=== PATIENT | female | born 1935 | race Caucasian/White ===

== ENCOUNTER 2018-07-25 19:53 | Inpatient (IN) | payer OTHER ==
[2018-07-25 20:35] LABS: PLATELET COUNT 277 10^3/uL (150-400)
--- NOTE | 2018-07-25 20:59 | EDPHY ---
HPI/HX/ROS/PE/MDM Narrative: CHIEF COMPLAINT: Left-sided weakness, unsteady HISTORY OF PRESENT ILLNESS: The patient is an 83 y/o female arriving with her family member for evaluation of left-sided weakness, unsteadiness, and difficulty walking since 03:00 this morning, about 17 hours ago. She felt normal when she went to sleep about 3 hours prior around midnight. She woke up to use the bathroom and "ended up having to crawl and couldn't make it in time. " She was unable to walk because her left hand and left leg "felt unsteady." Throughout the day she continued to have difficulty walking and describes numbness and tingling in her left hand. She slept most of the day and when it didn't improve she called her daughter who picked her up and brought her to the ED for evaluation. Her daughter denies any apparent speech difficulty over the phone or in person. No history of hypertension, cardiac disease, respiratory disease, or neurologic issues. No fever, chills, chest pain, shortness of breath, palpitations, vomiting, diarrhea, urinary complaints, headache, neck pain, lightheadedness. REVIEW OF SYSTEMS: Aside from elements discussed in the HPI, a comprehensive 10-point review of systems was reviewed and is negative. PAST MEDICAL HISTORY: Glaucoma and "major vision problems;" aspirin allergy SOCIAL HISTORY: Daughter at bedside. Lives in [place]. Retired. VITAL SIGNS: Reviewed by me. BP 248/129, HR 112. GENERAL: Well-developed, well-nourished, resting comfortably in no respiratory distress. HEENT: Atraumatic. Eyes: No icterus, no injection. Multiple areas of periorbital skin breakdown patient reports is related to an allergic reaction to glaucoma eye drops. Mouth: moist mucous membranes. No erythema or lesions. Neck: supple with no adenopathy. LUNGS: Clear to auscultation bilaterally, no wheezes, rhonchi or rales. CARDIAC: Tachycardic regular rate and rhythm, no rubs, murmurs or gallops. ABDOMEN: Soft, nontender, nondistended. BACK: No CVA tenderness. EXTREMITIES: Bruise over right knee and erythema over left knee. No edema. Range of motion is normal throughout. NEURO: Alert and oriented, motor strength appears to be 5/5 throughout. Sensory intact to light touch. Patient's speech is fluid. She is alert and oriented and able to name common objects. Extraocular movements intact. Cranial nerves 2-12 intact SKIN: Warm and dry, no rash. PSYCHIATRIC: Normal mentation, no agitation. Portions of this note were transcribed by a medical information specialist. I personally performed a history, physical exam, medical decision making, and confirmed accuracy of information the transcribed note. ED Course: This is an 83 y/o female with a history of glaucoma who presents with difficulty walking and left-sided weakness and paresthesias upon waking around 03:00 this morning, 17 hours ago. She last felt normal when she went to bed at midnight, 20 hours ago. She has an unsteady gait, but no focal deficits. She is hypertensive in the 240/120 range. Presentation concerning for stroke, but she is outside the window for TPA. Plan for IV, labs, EKG, head CT. 1L IV NS. Head CT shows subtle hypodensity and edema right temporal region which could represent acute stroke. Patient will benefit from a brain MRI Given the patient's consistent and extreme hypertension, systolics greater than 220 and diastolics greater than 120, cardiac drip was ordered. 15% reduction the patient's blood pressure would be 187 over 89. The 12 lead EKG was interpreted by myself. Sinus tachycardia, LVH, repolarization abnormality. See hard copy and/or "tracemaster" electronic copy for interpretation. 2130: Spoke with hospitalist service. Dr. Monzon accepts admission. Discussed the emergency department course, need for brief blood control, and concerns regarding acute stroke with the family and daughter. They understand reasons to be admitted to the hospital. Patient continues to complain only of a tingling feeling in the left upper extremity and a a weird feeling in the left lower extremity. MDM: Differential diagnoses the patient's presenting complaints was considered including but not limited to intracranial injury, TIA, ischemic cerebrovascular accident, hemorrhagic cerebrovascular accident, hypoglycemia, complex migraine , metastases, tumor, seizure, or electrolyte abnormality. - Data Points Imaging Results: Imaging Impressions Head CT 07/25/18 20:27 Impression: Possible small area of edema in the region of the anterior limb of the right internal capsule. Consider MRI without contrast for further evaluation. Results called to Dr. Magaly Chang at 9:18 PM. General information for patients regarding this examination can be found at [email or web address]. If you have questions or comments about this report, please contact me at (hospital) or [phone] (cell). Imaging: Discussed imaging studies w/ outbound call center representative Radiologist, I viewed and interpreted images myself Laboratory Results: Laboratory Results 07/25/18 20:16 07/25/18 20:16 07/25/18 07/25/18 07/25/18 20:35 20:16 20:16 WBC RBC Hgb Hct MCV MCH MCHC RDW Plt Count MPV Neut % (Auto) Lymph % (Auto) [place] % (Auto) Eos % (Auto) Baso % (Auto) Nucleat RBC Rel Count Absolute Neuts (auto) Absolute Lymphs (auto) Absolute Monos (auto) Absolute Eos (auto) Absolute Basos (auto) Absolute Nucleated RBC Immature Gran % Immature Gran # Sodium 143 mEq/L mEq/L (135-145) Potassium 4.2 mEq/L mEq/L (3.5-5.2) Chloride 111 mEq/L H mEq/L (97-110) Carbon Dioxide 19 mEq/l L mEq/l (22-31) Anion Gap 13 mEq/L mEq/L (6-14) BUN 21 mg/dL mg/dL (7-23) Creatinine 1.2 mg/dL H mg/dL (0.6-1.0) Estimated GFR 43 Glucose 120 mg/dL H mg/dL (70-100) Calcium 9.6 mg/dL mg/dL (8.5-10.4) POC Troponin I 0.02 ng/mL ng/mL (0.00-0.08) TSH Pending 07/25/18 20:16 WBC 8.74 10^3/uL 10^3/uL (3.80-9.50) RBC 5.09 10^6/uL 10^6/uL (4.18-5.33) Hgb 14.7 g/dL g/dL (12.6-16.3) Hct 44.5 % % (38.0-47.0) MCV 87.4 fL fL (81.5-99.8) MCH 28.9 pg pg (27.9-34.1) MCHC 33.0 g/dL g/dL (32.4-36.7) RDW 13.6 % % (11.5-15.2) Plt Count 277 10^3/uL 10^3/uL (150-400) MPV 10.5 fL fL (8.7-11.7) Neut % (Auto) 79.9 % H % (39.3-74.2) Lymph % (Auto) 12.4 % L % (15.0-45.0) [place] % (Auto) 6.3 % % (4.5-13.0) Eos % (Auto) 0.6 % % (0.6-7.6) Baso % (Auto) 0.6 % % (0.3-1.7) Nucleat RBC Rel Count 0.0 % % (0.0-0.2) Absolute Neuts (auto) 6.99 10^3/uL H 10^3/uL (1.70-6.50) Absolute Lymphs (auto) 1.08 10^3/uL 10^3/uL (1.00-3.00) Absolute Monos (auto) 0.55 10^3/uL 10^3/uL (0.30-0.80) Absolute Eos (auto) 0.05 10^3/uL 10^3/uL (0.03-0.40) Absolute Basos (auto) 0.05 10^3/uL 10^3/uL (0.02-0.10) Absolute Nucleated RBC 0.00 10^3/uL 10^3/uL (0-0.01) Immature Gran % 0.2 % % (0.0-1.1) Immature Gran # 0.02 10^3/uL 10^3/uL (0.00-0.10) Sodium Potassium Chloride Carbon Dioxide Anion Gap BUN Creatinine Estimated GFR Glucose Calcium POC Troponin I TSH Medications Given: Discontinued Medications Nicardipine/Sodium Chloride (Cardene 0.1 Mg/Ml (Premix)) 200 mls @ 0 mls/hr IV EDNOW ONE; Titrate PRN Reason: Protocol Stop: 07/25/18 21:21 Last Admin: 07/25/18 21:32 Dose: 200 mls Sodium Chloride (Ns) 1,000 mls @ 0 mls/hr IV ONCE ONE; Wide Open PRN Reason: Protocol Stop: 07/25/18 21:35 Last Admin: 07/25/18 21:47 Dose: 1,000 mls Point of Care Test Results: Chemistry 07/25/18 20:35 POC Troponin I 0.02 ng/mL ng/mL (0.00-0.08) General Time Seen by Provider: 07/25/18 20:29 Initial Vital Signs: Initial Vital Signs Temperature (C) 37.4 C 07/25/18 20:00 Heart Rate 116 H 07/25/18 20:00 Respiratory Rate 18 07/25/18 20:00 Blood Pressure 233/107 H 07/25/18 20:00 O2 Sat (%) 95 07/25/18 20:00 O2 Delivery Mode Room Air Allergies/Adverse Reactions: aspirin Allergy (Verified 07/25/18 19:58) glaucoma drops Allergy (Uncoded 07/25/18 19:58) Home Medications: Medication Instructions Recorded Bimatoprost 0.01% [Lumigan 0.01% 1 drop EACHEYE HS 07/25/18 (*)] Dorzolamide/Timolol/Pf [Cosopt Pf 1 drop EACHEYE BID 07/25/18 Eye Drops] Escitalopram Oxalate [Lexapro] 20 mg PO HS 07/25/18 Mirtazapine [Mirtazapine] 15 mg PO HS 07/25/18 Departure - Departure Disposition: [facility] Inpatient Acute Clinical Impression: Numbness and tingling of left arm and leg CVA (cerebral vascular accident) Qualifiers: CVA mechanism: other Qualified Code(s): I63.89 - Other cerebral infarction Condition: Good Report Scribed for: Magaly Chang Report Scribed by: Alisha Newell Date of Report: 07/25/18 Time of Report: 21:23
--- NOTE | 2018-07-25 21:03 | CPEKG ---
Test Reason : OPEN Blood Pressure : / mmHG Vent. Rate : 107 BPM Atrial Rate : 106 BPM P-R Int : 185 ms QRS Dur : 085 ms QT Int : 349 ms P-R-T Axes : 037 -17 -08 degrees QTc Int : 466 ms Sinus tachycardia Probable left atrial enlargement LVH with secondary repolarization abnormality Confirmed by Marion Rivera ([id number]) on 07/25/2018 9:03:12 PM Referred By: Confirmed By:Marion Rivera
[2018-07-25] MEDS ORDERED: niCARdipine/NACL 200 ML IV ONE (21:20)
[2018-07-25] MEDS ORDERED: NS 1,000 ML IV ONE (21:34)
[2018-07-25] MEDS ORDERED: ONDANSETRON DISINTEGRATING 4 MG TAB PO PRN (22:16)
[2018-07-25] MEDS ORDERED: ACETAMINOPHEN 325 MG TAB PO PRN (22:16)
[2018-07-25] MEDS ORDERED: ONDANSETRON 4 MG/2 ML VIAL IVP PRN (22:16)
[2018-07-25] MEDS ORDERED: HYDROCODONE/APAP 5/325 TAB PO PRN (22:16)
[2018-07-25] MEDS ORDERED: niCARdipine/NACL 200 ML IV SCH (22:30)
[2018-07-26] MEDS: ESCITALOPRAM OXALATE 10 MG TAB PO SCH ×2 (04:55→21:02)
[2018-07-26] MEDS: Dorzolamide/Timolol/Pf [Cosopt Pf Eye Drops] EACHEYE SCH ×3 (04:55→21:03)
[2018-07-26] MEDS: MIRTAZAPINE 15 MG TAB PO SCH ×2 (04:55→21:02)
[2018-07-26] MEDS: BIMATOPROST 0.01% EACHEYE SCH ×2 (04:55→21:03)
[2018-07-26 05:16] LABS: PLATELET COUNT 214 10^3/uL (150-400)
--- NOTE | 2018-07-26 05:45 | PDGENHP ---
History and Physical - Chief Complaint Left-sided weakness - History of Present Illness Date of service 07/25/2018 before midnight. Patient seen in the ICU. Source-patient provides history appears reliable. Daughter was at bedside supplement few details. EMR reviewed and case discussed with ED provider. HPI - this is a very pleasant 83-year-old female with past medical history significant for glaucoma, vision loss, anxiety and depression who presents to the emergency department with complaints of left-sided weakness that started approximately 17 hr prior to arrival in the emergency department. Patient overall has been relatively healthy and living independently at home with good support from her family in town. Patient reports that she woke up 0300 on 07/25 trying to get to the bathroom but found that she was significantly weak on the left side. She stumbled to the bathroom and subsequently was too weak to walk and so she was trying to pull herself to the bathroom by crawling on the floor. Patient fell to the ground landing on her left knee and hand. She denies any head injury. She denies any loss of consciousness. She denies any preceding lightheadedness, syncope, or headache. She did not quite make it to the bathroom and had episode of urinary incontinence. She returned to bed and went back to sleep. She continued to experience numbness and tingling in her left hand and left foot and so she called her daughter who brought her to the emergency department. Daughter reports she did not observe any facial drooping or dysarthria. Patient denies any dysphagia or drooling. In the emergency department, patient was noted to have a significantly elevated blood pressures systolic in 223/107. She was started on a Cardene drip. Patient reports she has never had any issues with her blood pressure. She has not seen her PCP since October as she is generally quite healthy. She has not had a blood pressure check since that time either. She reports normally her baseline is 120s over 80s. History Information - Allergies/Home Medication List Allergies/Adverse Reactions: aspirin Allergy (Verified 07/25/18 19:58) glaucoma drops Allergy (Uncoded 07/25/18 19:58) Home Medications: Bimatoprost 0.01% [Lumigan 0.01% (*)] 1 drop EACHEYE HS 07/25/18 [Last Taken ] Dorzolamide/Timolol/Pf [Cosopt Pf Eye Drops] 1 drop EACHEYE BID 07/25/18 [Last Taken 07/25/18 08:00] Escitalopram Oxalate [Lexapro] 20 mg PO HS 07/25/18 [Last Taken 07/24/18] Mirtazapine [Mirtazapine] 15 mg PO HS 07/25/18 [Last Taken 07/24/18] I have personally reviewed and updated: family history, medical history, social history, surgical history - Past Medical History Additional medical history: Significant visual deficits, Glaucoma. Anxiety and depression - Surgical History Additional surgical history: Patient denies - Family History Additional family history: Family history negative for stroke or hypertension. - Social History Smoking Status: Never smoked Alcohol Use: None Drug Use: None Additional social history: Patient is and lives alone in her home in [place]. She has excellent support and her daughter is at bedside. At home she does not require any assistive ambulatory devices and she does not wear any oxygen. 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 Cor status-limited. Patient would only be amenable to shock no additional medications, compressions or intubation. Review of Systems Review of Systems: ROS: 10pt was reviewed & negative except for what was stated in HPI & below Constitutional: Reports: no symptoms EENMT: Reports: blurred vision (Chronically poor vision nothing acute.). Denies : sore throat Cardiac: Reports: no symptoms. Denies: edema Respiratory: Reports: no symptoms Gastrointestinal: Reports: no symptoms Genitourinary: Reports: no symptoms Muscolosketal: Reports: other (Left upper and lower extremity weakness as noted in HPI) Skin: Reports: other (Bruising due to fall left hand left knee) Neurological: Reports: anxiety, numbness, tingling (Left hand, left foot), weakness (As per HPI). Denies: depressed (Treatment for) Hematologic/Lymphatic: Reports: easy bruising Immunologic/Allergy: Reports: no symptoms Physical Exam Physical Exam: Selected Entries 07/25/18 07/25/18 07/25/18 20:00 23:00 23:49 Blood Pressure Automatic Method Heart Rate 116 H 103 H 112 H Respiratory 18 24 H Rate O2 Sat (%) 95 92 97 Temperature (C) 37.4 C Blood Pressure 233/107 H 187/94 H 174/96 H Mean Arterial 149 H 125 H 116 H Pressure (MAP) Activity During At Rest Vital Signs O2 Delivery Room Air Room Air Mode Blood Pressure Right Source Upper Arm Automatic Temperature Oral Source Heart Rate Automatic Source Cardiac Rhythm Sinus Tachycardia ST Segment No Change Review of Yes Continuous Monitoring Alarm History Alarm Yes Parameters Assessed Constitutional: no apparent distress, appears nourished, chronically ill appearing, other (NAD. Pleasant frail elderly female is sitting up in bed. Her daughter is at bedside.) Eyes: PERRL (Decreased reactivity light bilaterally but symmetric. Patient with glasses in place), anicteric sclera, EOMI, other (Minimal conjunctival injection without drainage.) Ears, Nose, Mouth, Throat: moist mucous membranes, other (No nasal discharge.), No poor dentition Cardiovascular: regular rate and rhythym, no murmur, rub, or gallop, pulses symmetric bilaterally, No edema Peripheral Pulses: 1+: dorsalis-pedis (R), dorsalis-pedis (L) Respiratory: no respiratory distress, no rales or rhonchi, clear to auscultation , reduced air movement (Decreased inspiratory effort bibasilarly.), No expiratory wheeze, No inspiratory crackles, No respiratory distress Gastrointestinal: normoactive bowel sounds, soft, non-tender abdomen, no palpable masses, other (Soft but full abdomen.), No tenderness, No distension Genitourinary: no bladder tenderness, No callejas in urethra Skin: warm, normal color, abrasion (Patient with contusion over the extensor surface of the left hand. Left Anterior knee. Some minimal tenderness to palpation over both.) Musculoskeletal: muscular tenderness (The extensor surface left hand), generalized weakness Neurologic: AAOx3, sensation intact bilaterally, weakness (Left hand broke beater minimally decreased. Patient does note some discomfort with gripping due to contusion on the extensor surface of her hand. In 5/5 strength lower extremity. ) Psychiatric: No poor insight, No poor judgement, No poor memory Lab Data & Imaging Review 07/26/18 04:30 07/26/18 04:30 WBC 6.55 10^3/uL (3.80-9.50) 07/26/18 04:30 RBC 4.55 10^6/uL (4.18-5.33) 07/26/18 04:30 Hgb 13.2 g/dL (12.6-16.3) 07/26/18 04:30 Hct 39.0 % (38.0-47.0) 07/26/18 04:30 MCV 85.7 fL (81.5-99.8) 07/26/18 04:30 MCH 29.0 pg (27.9-34.1) 07/26/18 04:30 MCHC 33.8 g/dL (32.4-36.7) 07/26/18 04:30 RDW 13.8 % (11.5-15.2) 07/26/18 04:30 Plt Count 214 10^3/uL (150-400) 07/26/18 04:30 MPV 10.2 fL (8.7-11.7) 07/26/18 04:30 Neut % (Auto) 57.7 % (39.3-74.2) 07/26/18 04:30 Lymph % (Auto) 29.0 % (15.0-45.0) 07/26/18 04:30 [place] % (Auto) 10.7 % (4.5-13.0) 07/26/18 04:30 Eos % (Auto) 1.4 % (0.6-7.6) 07/26/18 04:30 Baso % (Auto) 0.9 % (0.3-1.7) 07/26/18 04:30 Nucleat RBC Rel Count 0.0 % (0.0-0.2) 07/26/18 04:30 Absolute Neuts (auto) 3.78 10^3/uL (1.70-6.50) 07/26/18 04:30 Absolute Lymphs (auto) 1.90 10^3/uL (1.00-3.00) 07/26/18 04:30 Absolute Monos (auto) 0.70 10^3/uL (0.30-0.80) 07/26/18 04:30 Absolute Eos (auto) 0.09 10^3/uL (0.03-0.40) 07/26/18 04:30 Absolute Basos (auto) 0.06 10^3/uL (0.02-0.10) 07/26/18 04:30 Absolute Nucleated RBC 0.00 10^3/uL (0-0.01) 07/26/18 04:30 Immature Gran % 0.3 % (0.0-1.1) 07/26/18 04:30 Immature Gran # 0.02 10^3/uL (0.00-0.10) 07/26/18 04:30 Sodium 144 mEq/L (135-145) 07/26/18 04:30 Potassium 3.8 mEq/L (3.5-5.2) 07/26/18 04:30 Chloride 112 mEq/L (97-110) H 07/26/18 04:30 Carbon Dioxide 21 mEq/l (22-31) L 07/26/18 04:30 Anion Gap 11 mEq/L (6-14) 07/26/18 04:30 BUN 18 mg/dL (7-23) 07/26/18 04:30 Creatinine 1.1 mg/dL (0.6-1.0) H 07/26/18 04:30 Estimated GFR 48 07/26/18 04:30 Glucose 97 mg/dL (70-100) 07/26/18 04:30 Calcium 9.1 mg/dL (8.5-10.4) 07/26/18 04:30 Magnesium 2.2 mg/dL (1.6-2.3) 07/26/18 04:30 POC Troponin I 0.02 ng/mL (0.00-0.08) 07/25/18 20:35 Triglycerides 97 mg/dL (35-135) 07/26/18 04:30 Cholesterol 262 mg/dL (140-220) H 07/26/18 04:30 Cholesterol Risk Factr 1.0 (0.2-1.0) 07/26/18 04:30 LDL Cholesterol, Calc 183 mg/dL (80-100) H 07/26/18 04:30 LDL Risk Factor 1.0 (0.2-1.0) 07/26/18 04:30 VLDL Cholesterol 19 mg/dL (8-25) 07/26/18 04:30 Non-HDL Cholesterol 202 mg/dL (90-129) H 07/26/18 04:30 HDL Cholesterol 60 mg/dL (40-85) 07/26/18 04:30 LDL/HDL Ratio 3.04 RATIO (1.00-3.22) 07/26/18 04:30 Cholesterol/HDL Ratio 4.37 RATIO (1.00-4.44) 07/26/18 04:30 TSH 2.040 uIU/mL (0.465-4.680) 07/25/18 20:16 Laboratory Tests 07/25/18 07/25/18 07/25/18 20:16 20:16 20:16 WBC 8.74 RBC 5.09 Hgb 14.7 Hct 44.5 MCV 87.4 MCH 28.9 MCHC 33.0 RDW 13.6 Plt Count 277 MPV 10.5 Neut % (Auto) 79.9 H Lymph % (Auto) 12.4 L [place] % (Auto) 6.3 Eos % (Auto) 0.6 Baso % (Auto) 0.6 Nucleat RBC Rel Count 0.0 Absolute Neuts (auto) 6.99 H Absolute Lymphs (auto) 1.08 Absolute Monos (auto) 0.55 Absolute Eos (auto) 0.05 Absolute Basos (auto) 0.05 Absolute Nucleated RBC 0.00 Immature Gran % 0.2 Immature Gran # 0.02 Sodium 143 Potassium 4.2 Chloride 111 H Carbon Dioxide 19 L Anion Gap 13 BUN 21 Creatinine 1.2 H Estimated GFR 43 Glucose 120 H Calcium 9.6 POC Troponin I TSH 2.040 07/25/18 20:35 WBC RBC Hgb Hct MCV MCH MCHC RDW Plt Count MPV Neut % (Auto) Lymph % (Auto) [place] % (Auto) Eos % (Auto) Baso % (Auto) Nucleat RBC Rel Count Absolute Neuts (auto) Absolute Lymphs (auto) Absolute Monos (auto) Absolute Eos (auto) Absolute Basos (auto) Absolute Nucleated RBC Immature Gran % Immature Gran # Sodium Potassium Chloride Carbon Dioxide Anion Gap BUN Creatinine Estimated GFR Glucose Calcium POC Troponin I 0.02 TSH Imaging Review: CT Head Without Contrast, 8:50 PM History: Left arm weakness x18 hours. Technique: Noncontrast images through the head. Soft tissue and bone window evaluation is performed. Sagittal and coronal reconstructions are obtained and reviewed. Dose reduction techniques were utilized. . Findings: The patient's head is tilted in the scanner. There is equivocally some asymmetrical hypodensity in the deep white matter lateral to the right caudate head. There is severe age- appropriate cerebral atrophy. There is no evidence for hemorrhage, mass lesion, hydrocephalus or abnormal intracranial calcification. There is a small old lacunar in the mid right parietal subcortical white matter. No subarachnoid, subdural or epidural blood is identified. There is no midline shift. The ambient cistern is patent. Bone window evaluation reveals normally aerated paranasal and mastoid sinuses and both middle ears. There is no evidence of pneumocephalus.No depressed or basilar skull fracture is identified. Impression: Possible small area of edema in the region of the anterior limb of the right internal capsule. Consider MRI without contrast for further evaluation. Results called to Dr. Magaly Chang at 9:18 PM. General information for patients regarding this examination can be found at [email or web address]. If you have questions or comments about this report, please contact me at [phone] (hospital) or [phone] (cell). Bilateral Duplex Carotid Sonography Clinical Indications: Left-sided weakness Technique: The cervical portions of the carotid and vertebral arteries were imaged and interrogated by color and spectral Doppler. Spectral analysis was performed. Findings: Right Carotid: The common carotid artery, bifurcation, and origin of the internal and external carotid artery are well imaged. Is minimal plaque in the carotid bifurcation.. Doppler velocity estimates and color Doppler spectra are normal. Peak ICA systolic velocity = 123 cm/sec and diastolic velocity = Teresita 9 cm/sec. No evidence of flow-limiting stenosis. No focal plaque identified. Left Carotid: The common carotid artery, bifurcation, and origin of the internal and external carotid artery are well imaged. There is minimal plaque in the carotid bifurcation.. Doppler velocity estimates and color Doppler spectra are normal. Peak ICA systolic velocity = 81 cm/sec and peak diastolic velocity = 26 cm/sec. No evidence of flow-limiting stenosis. No focal plaque identified.. Vertebral Arteries: Antegrade flow is shown by pulsed Doppler of each vertebral artery. Impression: No evidence of flow-limiting carotid stenosis. Measurement of carotid stenosis is based on velocity parameters that correlate the residual internal carotid diameter with [place] Symptomatic Carotid Endarterectomy Trial (NASCET) based stenosis levels. Dictated By: Arnoldo Vargas MD EKG additional interpertation: Sinus tachycardia in the 100s. LAE. LVH with secondary report changes. QTC 466. Assessment & Plan Assessment: Pleasant 83-year-old female with history of glaucoma, anxiety and depression who presents emergency department with sudden onset left-sided weakness starting greater than 20 hr prior to admission #CVA (cerebral vascular accident) (Acute) - patient currently reporting numbness and tingling in her left hand and foot only. Her overall strength in her extremities is quite similar to her right side. She has no other focal deficits. CT of the head and was noted to have a possible small area of edema in anterior limb of the right internal capsule. Discussed findings with the patient and her daughter recommending additional evaluation for stroke. Studies ordered include MRI. Given patient's renal insufficiency will not add contrast for CTA head and neck rather we will order a carotid ultrasound. Echocardiogram with bubble ordered. Stroke protocol in place with consult for PT OT. Neurology consultation also requested. Patient is intolerant of aspirin products due to history of GI bleeding. #Malignant hypertension/hypertensive emergency - patient's initial blood pressure in the ED was 233/107. Goal to decrease patient by 25% with nicardipine. Patient reports no previous history of hypertension generally has been quite healthy. She has had a chest pain. Troponin negative. Obtain a echocardiogram in the morning. Her EKG is significant for findings of LVH which may be indicative of a longer standing history of elevated blood pressures and patient is aware of. She does report a history of white coat hypertension when she sees her PCP but her blood pressures are generally still high 120s over 80s by her report. #Numbness and tingling of left arm and leg (Acute) - blood pressure control and evaluation as noted above. # acute kidney injury - patient denies any previous known history of renal dysfunction. Likely secondary to hypertensive injury. Will plan to repeat and monitor BMP. Hold off on CT contrast studies due to patient's renal function for now pending repeat BMP. #Sinus tachycardia - patient without any complaints of dyspnea, cough, hemoptysis or findings of hypoxia. Overall low concern for a PE. Patient does appear a little bit anxious not likely accounting for her tachycardia at this time. Hold oral hydration as patient without any swallow dysfunction. Chronic medical issues # glaucoma - resume patient's home eyedrops as some are preservative free. # anxiety and depression - continue patient's Lexapro. Ativan available p.r.n. For MRI studies and severe anxiety. FEN - holding IV fluid in setting of high blood pressure. Oral hydration and diet as tolerated. Electrolytes adequate did not require replacement. PPX-SCDs. Holding anticoagulation in setting of possible acute CVA as well as hypertensive emergency. Cor status-limited. Patient is only amenable to defibrillation otherwise she does not want any IV medications, compressions or intubation. Daughter at bedside for discussion. Disposition-patient admitted to inpatient status on ICU as she requires a Cardene drip o'clock, close monitoring of blood pressures, close stroke monitoring and additional imaging send workup studies. Anticipate greater than 2 midnight stay.
--- NOTE | 2018-07-26 10:03 | ECHO ---
[email or web address] [address] [address] Main: [phone] Fax: Transthoracic Echocardiogram Name: JOSE VALENCIA MR#: [id number] Study Date: 07/26/2018 Study Time: 07:37 AM Date of : 1935 Age: 83 year(s) Height: 154.9 cm (61 in.) Weight: 56.7 kg (125 lb.) BSA: 1.55 m2 Gender: Female Examination: Echo Indication: Ischemic stroke Image Quality: Contrast: Requested by: Audra Weaver BP: 146 mmHg/98 mmHg Heart Rate: Rhythm: Indication: Ischemic stroke Procedure Staff Medical Billing Supervisor: Tiffany Chaudhry [facility] Reading Physician: Idris Abel MD Requesting Provider: Conclusions: Normal size left ventricle. Mild concentric LV hypertrophy. The ejection fraction is estimated to be 70-75 %. Normal diastolic LV function. Trivial mitral valve regurgitation. Minimal aortic cusp calcification is noted. Mild to moderate tricuspid valve regurgitation. The pulmonary artery pressure is normal. Moderate pulmonic valve regurgitation is noted. Consider MICAELA if there is strong clinical suspicion for cardioembolism. Measurements: Chambers Valvular Assessment AV/MV Valvular Assessment TV/PV Normal Normal Normal Name Value Range Name Value Range Name Value Range Ao Raeann (MM): 3.4 cm (2.2 cm-3.7 AV Vmax: 1.38 m/s (1 m/s-1.7 TR Vmax: 2.61 mm/s ( - ) cm) m/s) TR PGmax: 27 mmHg ( - ) IVSd (2D): 0.8 cm (0.6 cm-1.1 AV maxP mmHg ( - ) syst. PAP: 32 mmHg ( - ) cm) AV meanP mmHg ( - ) PV Vmax: 0.88 m/s (0.6 m/s-0.9 LVDd (2D): 4.3 cm (3.9 cm-5.3 MV E Vmax: 0.65 m/s ( - ) m/s) cm) MV A Vmax: 1.22 m/s ( - ) PV PGmax: 3 mmHg ( - ) LVDs (2D): 2.8 cm (2.1 cm-4 MV E/A: 0.53 ( - ) cm) LVPWd (2D): 0.9 cm ( - ) LVEF (BP): 78 % (>=55 %) EF Range: 70-75 % Continued Measurements: Chambers Valvular Assessment AV/MV Valvular Assessment TV/PV Patient: JOSE VALENCIA Study Date: 07/26/2018 Page 1 of 2 07:37 AM Name Value Name Value Name Value LADs: 3.4 cm MV E/E' Septal: 15.60 CVP (est.): 5 mmHg LADs Lon.0 cm MV E/E' Lateral: 17.20 LA Area: 18.1 cm2 LA Volume: 54 ml LA Volume Index: 34.8 ml/m2 Additional Vessels Name Value Ao Ascendin.8 cm Findings: Left Ventricle: Normal size left ventricle. Mild concentric LV hypertrophy. Global hypercontractility of the left ventricle. The ejection fraction is estimated to be 70-75 %. No regional wall motion abnormality. Normal diastolic LV function. E/a wave reversal.. Right Ventricle: Normal size right ventricle. Left Atrium: The left atirum is borderline dilated. An agitated saline study was performed and was negative for intracardiac shunting. Right Atrium: The right atrium is normal in size. Mitral Valve: The mitral valve is normal in appearance and function. Trivial mitral valve regurgitation. Aortic Valve: The aortic valve is tri-leaflet. Minimal aortic cusp calcification is noted. Tricuspid Valve: The tricuspid valve is normal in appearance and function. Mild to moderate tricuspid valve regurgitation. The pulmonary artery pressure is normal. Pulmonic Valve: The pulmonic valve is normal in appearance and function. Moderate pulmonic valve regurgitation is noted. Aorta: Borderline dilated ascending aorta.. The aorta is normal. Pericardium: Trivial pericardial effusion. (No Signature Object) Patient: JOSE VALENCIA Study Date: 07/26/2018 Page 2 of 2 07:37 AM [id number]
--- NOTE | 2018-07-26 10:24 | PDMN ---
Medical Necessity Medical necessity: Pt meets IP criteria as of 07/25/2018 per and LANA MG-N ( Neurology GRG); est los > 2 mn for ongoing tx and management of acute CVA with L sided weakness as well as hypertensive emergency, sinus tachycardia, and BRANNON; requiring further workup, neurology consultation, cardene gtt, ICU level care, and therapies.
--- NOTE | 2018-07-26 11:20 | HOSPPROG ---
Hospitalist Progress Note Assessment/Plan: CVA - MRI showed acute infarct in right thalamus and right occipital lobe. MRA with thrombosed/occluded right posterior cerebral artery. Discussed with neurology, no indication for transfer at this point. Searching for embolic source. Carotid artery u/s without flow limiting stenosis. -neurology to discuss with opthalmology re: anti-platelet tx given h/o opthalmic hemorrhage -echo pending -cont telemetry to look for A fib, will need outpt cardiac event monitor if no a fib seen here -start statin (LDL 183) -permissive hypertension, Labetalol for SBP >220, DBP >120 -PT/OT, inpt rehab eval requested Hypertension - initially required cardene drip, which is now off and she is normotensive without meds -monitor, permissive htn for now -goal BP <140/90 in next 24 hrs Anxiety / Depression - cont lexapro, mirtazapine Glaucoma - cont outpt eye drops Limited resuscitation - shock only, no compressions, no intubation Subjective: Pt feels ok, still has some right sided weakness. No speech difficulties. Eating ok. No delaney or vision changes. Objective: Vital Signs Temp Pulse Resp BP Pulse Ox 37.1 C 91 13 154/85 H 97 07/26/18 08:00 07/26/18 08:00 07/26/18 08:00 07/26/18 08:00 07/26/18 08:00 Laboratory Results 07/26/18 04:30 07/26/18 04:30 07/25/18 07/26/18 07/27/18 05:59 05:59 05:59 Intake Total 330 Output Total 350 Balance -20 - Physical Exam Constitutional: no apparent distress Eyes: PERRL Ears, Nose, Mouth, Throat: moist mucous membranes Cardiovascular: regular rate and rhythym Respiratory: no respiratory distress, clear to auscultation Gastrointestinal: normoactive bowel sounds, soft, non-tender abdomen Skin: warm Musculoskeletal: other (+RUE and RLE weakness) Neurologic: AAOx3 Psychiatric: interacting appropriately ICD10 Worksheet Patient Problems: Problems Problem Status Onset CVA (cerebral vascular accident) Acute Numbness and tingling of left arm and leg Acute
--- NOTE | 2018-07-26 11:54 | GCON ---
NEUROLOGIC CONSULTATION REFERRING PHYSICIAN: Alicia Mack MD HISTORY: The patient is an 83-year-old woman whom I am asked to see in neurologic consultation david lezama left-sided weakness with onset yesterday around 3 in the morning. She had gotten up and recogni zed feeling unsteady to the point that she could not walk safely and was trying to get to the bathroo m and did not quite make it. She definitely feels her left side was weak and remains a little bit we ak compared to her normal baseline. She is left-handed. She also feels a little bit of numbness in the left arm. She has never had this occur in the past. The patient came to the emergency room and had a head CT showing possible changes in the right internal capsule of early ischemia but uncertain. Carotid ultrasound has been performed without any significant stenoses. She is not on antiplatelet therapy because she has a history of some suspected mild GI bleeding, and also has known eye disease with history of bleeding, for which there has been concern about risk of antiplatelet therapy as bes t I understand. I have tried to reach her operations and maintenance supervisor, but he is not immediately available, and left a message. She denies any acute headache. She is not feeling confused. No chest pain, palpitations, or shortne ss of breath. 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 History of glaucoma, anxiety, depression. FAMILY HISTORY: Unremarkable. She was never a smoker. 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 No alcohol or drug use. She has been for 30 years and lives in [facility] or with her family nearby. MEDICATIONS: At home, eyedrop, Lumigan, as well as Cosopt, Lexapro, and mirtazapine. ALLERGIES: She is not allergic to aspirin, but has risk of bleeding. REVIEW OF SYSTEMS: As outlined above, otherwise unremarkable. PHYSICAL EXAM: VITAL SIGNS: She initially had a high blood pressure of 233/107 and received some ni cardipine, and that was diminished down now to where her current pressure is 154/85, and this was all brought down gradually. Pulse has been in the range of 90. Respirations 13, temperature 37.1. GEN ERAL: She is well developed, in no acute distress. EYES: Clear. NECK: Supple. No bruits or mass es. CARDIAC: Regular rate and rhythm. No murmur. NEUROLOGIC: She is awake, alert and attentive, fully oriented to person, place, and time and general situation. She is nearly blind in the right ey e, and has diminished vision in the left eye. Visual field testing is unreliable for great detail. Extraocular movements are intact. Normal facial sensation and strength. Palate elevates symmetrical ly. Tongue protrudes midline. Hearing is diminished bilaterally. She is not wearing her hearing ai ds. Motor exam: She has a drift in the left upper extremity and left lower extremity. Actual muscl e power is a 4/5 range. Rapid alternating movements are a little slower in the left hand than the ri ght. Sensation is preserved for temperature and light touch. She can stand by herself from the seat ed position and is able to maintain her balance with some standby assist. As she ambulated with the physical therapist, she was able to walk, but she has abnormal placement of the left foot and is a li ttle bit unsteady. Postural reflexes are partially impaired. Reflexes are a little more brisk on th e left than the right and probably a left Babinski sign, but normal on the right. IMPRESSION: Total unit time: 70 minutes. The patient has an NIH Stroke Scale of 2. She probably h as experienced a lacunar syndrome, but we will look for any embolic source. No obvious large vessel stenosis in the carotid ultrasound. Brain MRI and MR angiogram pending, as well as echocardiogram wi th bubble study. With regard to antiplatelet therapy, she should be on this, but the history of blee ding, as well as risk of bleeding in the eye need to be further assessed before making a risk/benefit analysis, and we discussed that. I put in a phone call to Dr. Amezcua at the [facility] to see if I can get his input on the relative risk for bleeding in the eye. Statin therapy will be appropriate to initiate, and she has a lipid panel showing an LDL cholesterol of 183. Therefore, she should be started on statin therapy before leaving the hospital. Copy requested to: Dr. Amezcua Ophthalmology Dept /[id number]/MODL
--- NOTE | 2018-07-26 14:23 | ASMTCMCOM ---
CM Note CM Note Notes: 83yo female admitted for CVA-L sided weakness, HTN ER, BRANNON, Tachy. She has a Hx of Glaucoma, Vision loss, Anxiety, Depression. She has been living independently at home. Her daughter, Jo is her MPOA, Code status is Limited Resuscitation. Therapies to eval for discharge needs. CM to follow. Date Signed: 07/26/2018 09:59 AM Electronically Signed By:Tonja Curtis LCSW
[2018-07-26] MEDS ORDERED: LABETALOL HCL 5 MG/ML 20 ML MDV IVP PRN (14:43)
[2018-07-26] MEDS: ATORVASTATIN CALCIUM 40 MG TAB PO SCH (17:51)
[2018-07-27 07:41] VITALS: BP 148/95
--- NOTE | 2018-07-27 08:04 | NEUROPROG ---
Assessment: 25 min total unit time. The patient has an acute stroke in the right posterior cerebral artery territory of uncertain cause. I had a discussion with her intake nurse at the [facility]. He and I both feel that the risk of stroke is greater than the risk of significant bleeding in the eye with use of anti-platelet therapy, so I will initiate baby aspirin and obtain her permission to do this. I will also start statin therapy for secondary stroke prophylaxis. Hopefully she will qualify for inpatient rehab care and consultation has been placed. Subjective: The patient is reporting that she is feeling a little bit better but no major changes in her symptoms of mild left-sided weakness. Objective: Vital Signs Temp Pulse Resp BP Pulse Ox 36.9 C 80 16 148/95 H 91 L 07/27/18 07:39 07/27/18 07:39 07/27/18 07:39 07/27/18 07:39 07/27/18 07:39 Laboratory Results 07/26/18 04:30 07/26/18 04:30 07/26/18 07/27/18 07/28/18 05:59 05:59 05:59 Intake Total 330 650 Output Total 350 Balance -20 650 On examination, I believe she has a left visual field deficit on top of the near blindness in the right eye. There remains a mild left sided weakness. With the visual field deficit, her NIH stroke scale would be 3. MRI scan showed evidence of an occluded right posterior cerebral artery with corresponding acute ischemic changes in that distribution with a thalamic infarct and right occipital infarction. Allergies/Adverse Reactions: glaucoma drops Allergy (Uncoded 07/25/18 19:58)
--- NOTE | 2018-07-27 08:40 | HOSPPROG ---
Hospitalist Progress Note Assessment/Plan: #Acute CVA: in STACKER STRAIGHTENER territory -ASA, statin. Inpatient rehab consult #HHTN #Glaucoma #Anxiety/depression See DC summary for A&P Objective: Vital Signs Temp Pulse Resp BP Pulse Ox 36.9 C 80 16 148/95 H 91 L 07/27/18 07:39 07/27/18 07:39 07/27/18 07:39 07/27/18 07:39 07/27/18 07:39 Laboratory Results 07/26/18 04:30 07/26/18 04:30 07/26/18 07/27/18 07/28/18 05:59 05:59 05:59 Intake Total 330 650 Output Total 350 Balance -20 650 ICD10 Worksheet Patient Problems: Problems Problem Status Onset CVA (cerebral vascular accident) Acute Numbness and tingling of left arm and leg Acute
[2018-07-27] MEDS ORDERED: ASPIRIN EC 81 MG TAB PO SCH (09:00)
[2018-07-27] MEDS: Dorzolamide/Timolol/Pf [Cosopt Pf Eye Drops] EACHEYE SCH (09:42)
[2018-07-27] MEDS: ATORVASTATIN CALCIUM 40 MG TAB PO SCH (09:42)
--- NOTE | 2018-07-27 12:04 | ASMTCMCOM ---
CM Note CM Note Notes: Met with patient's daughter, Jo in a 'Family Meeting" 07/26/18. Jo reports that her mother moved her from [place]. She is living at [facility] in [place]. Patient is [place] and has poor eyesight since she was 32. 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 Has Anxiety and Depression and has been in In-pt Psych for her depression 3x. Patient had been seeing a Geriatric psychiatrist and then a psychologist until they recently agreed she no longer needed that assist. Daughter concerned that her mother is an introvert, poor sight and hearing tends to isolate herself which adds to the depression. Patient enjoys crossword puzzles and her IPad. She has friends and a Bro-in-law in [place] she stays in touch with her IPad and two grandchildren 15 + 14. We talked about In-pt Rehab on discharge. [facility] In-pt Rehab doesn't have beds available today, but will Thursday. Daughter interested in [facility] In-pt Rehab. Date Signed: 07/27/2018 12:03 PM Electronically Signed By:Tonja Curtis LCSW
--- NOTE | 2018-07-27 13:56 | PDIAF ---
- Diagnosis Diagnosis: CVA Code Status: Limited Resuscitation - Medication Management Discharge Medications: electronically signed and located in the Home Medication List. - Orders Services needed: Registered Nurse, Certified Production Lead, Physical Therapy, Occupational Therapy, Speech Language Pathologist Diet Recommendation: cardiac -low fat low salt Diet Texture: Regular Texture Diet Additional Instructions: Monitor blood pressure. May need addition of Norvasc 2.5mg and titration starting 07/28/18 - Follow Up Care Current Providers and Referrals: Hoang Elliott MD [Primary Care Provider] - As per Instructions
--- NOTE | 2018-07-27 14:12 | ASMTLACE ---
SIDRA Length of stay for Answers: 2 days current admission Acuity / Level of Answers: Yes Care: Did the patient have an inpatient admission? Comorbidities - select Answers: Cerebrovascular disease all that apply (CVA, TIA, aneurysms, vasc ular dementia) Other Notes: Visual deficits; Kellyo moreno # of Emergency department Answers: 1-2 visits in the last 6 months Social determinants Answers: Mental health diagnosis (anxiety, depression, pers onality disorders, etc.) Score: 11 Date Signed: 07/27/2018 02:12 PM Electronically Signed By:Tonja Curtis LCSW
--- NOTE | 2018-07-27 14:15 | ASMTDCNOTE ---
Case Management Discharge Discharge Order Complete? Answers: Yes Patient to Obtain Answers: Other Notes: In-pt Rehab Medications Transportation Arranged Answers: Family/Friends Transport will Pick (Date 07/27/2018 02:30 PM & Time) Faxed Final Orders Answers: Yes Notes: In-pt Rehab Family Notified Answers: Yes Notes: Dtr to transport Discharge Comments Notes: Patient has been discharged to In-pt Rehab. Dtr to transport Date Signed: 07/27/2018 02:14 PM Electronically Signed By:Tonja Curtis LCSW
--- NOTE | 2018-07-27 14:28 | ASDISCHSUM ---
Discharge Information Plan Status:Inpatient Rehab Medically Cleared to Leave:07/26/2018 Discharge Date:07/26/2018 CM D/C Disposition:[facility] Acute ADT D/C Disposition:[facility] IP Projected Discharge Date:07/27/2018 03:00 PM Transportation at D/C:Wheelchair Van Discharge Delay Reason: Follow-Up Date:07/27/2018 03:00 PM Discharge Slot:2 - 12:01 pm - 18:00 pm Final Diagnosis:CVA-L sided weakness, HTN ER, BRANNON, Tachy Placement Information Referral Type:Rehabilitation Hospital Referral ID:[id number] Provider Name:[facility] Address 1:[address] Phone Number: Address 2: Fax Number: [facility]:Sod Selection Factors: State:[place] Patient Contact Information Contact Name:MAURICE Relationship:Daughter Address: Work Phone: City: [facility] Phone: [facility] Code: Email: Financial Information Financial Class:Medicare Primary Plan Desc:MEDICARE INPATIENT Primary Plan Number:[id number] Secondary Plan Desc:EMILY CALLAWAY Secondary Plan Number:[id number] Assessment Information LACE LACE Length of stay for Answers: 2 days current admission Acuity / Level of Answers: Yes Care: Did the patient have an inpatient admission? Comorbidities - select Answers: Cerebrovascular disease all that apply (CVA, TIA, aneurysms, vasc ular dementia) Other Notes: Visual deficits; Radha mayer # of Emergency department Answers: 1-2 visits in the last 6 months Social determinants Answers: Mental health diagnosis (anxiety, depression, pers onality disorders, etc.) Score: 11 Date Signed: 07/27/2018 02:12 PM Electronically Signed By:Tonja Curtis LCSW [facility] Progress Note CM Note CM Note Notes: 83yo female admitted for CVA-L sided weakness, HTN ER, BRANNON, Tachy. She has a Hx of Glaucoma, Vision loss, Anxiety, Depression. She has been living independently at home. Her daughter, Jo is her MPOA, Code status is Limited Resuscitation. Therapies to eval for discharge needs. CM to follow. Date Signed: 07/26/2018 09:59 AM Electronically Signed By:Tonja Curtis LCSW [facility] CM Progress Note CM Note CM Note Notes: Met with patient's daughter, Jo in a 'Family Meeting" 07/26/18. Jo reports that her mother moved her from [place]. She is living at [facility] in [place]. Patient is [place] and has poor eyesight since she was 32. 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 Has Anxiety and Depression and has been in In-pt Psych for her depression 3x. Patient had been seeing a Geriatric psychiatrist and then a psychologist until they recently agreed she no longer needed that assist. Daughter concerned that her mother is an introvert, poor sight and hearing tends to isolate herself which adds to the depression. Patient enjoys crossword puzzles and her IPad. She has friends and a Bro-in-law in [place] she stays in touch with her IPad and two grandchildren 15 + 14. We talked about In-pt Rehab on discharge. [facility] In-pt Rehab doesn't have beds available today, but will Thursday. Daughter interested in [facility] In-pt Rehab. Date Signed: 07/27/2018 12:03 PM Electronically Signed By:Tonja Curtis LCSW Case Management Discharge Plan Note Case Management Discharge Discharge Order Complete? Answers: Yes Patient to Obtain Answers: Other Notes: In-pt Rehab Medications Transportation Arranged Answers: Family/Friends Transport will Pick (Date 07/27/2018 02:30 PM & Time) Faxed Final Orders Answers: Yes Notes: In-pt Rehab Family Notified Answers: Yes Notes: Dtr to transport Discharge Comments Notes: Patient has been discharged to In-pt Rehab. Dtr to transport Date Signed: 07/27/2018 02:14 PM Electronically Signed By:Tonja Curtis LCSW Intervention Information
--- NOTE | 2018-07-27 14:36 | PDIAF ---
- Diagnosis Diagnosis: CVA Code Status: Limited Resuscitation - Medication Management Discharge Medications: electronically signed and located in the Home Medication List. - Orders Services needed: Registered Nurse, Certified Train Electronic Technician, Physical Therapy, Occupational Therapy, Speech Language Pathologist Diet Recommendation: cardiac -low fat low salt Diet Texture: Regular Texture Diet Additional Instructions: Monitor blood pressure. - Follow Up Care Current Providers and Referrals: Hoang Elliott MD [Primary Care Provider] - As per Instructions
--- NOTE | 2018-07-27 15:08 | GDS ---
DISCHARGE DIAGNOSES: 1. Acute stroke in the right posterior cerebral artery territory. 2. Hypertension. 3. Anxiety/depression. 4. Glaucoma. 5. Right eye blindness. HISTORY OF PRESENT ILLNESS: A pleasant 83-year-old female with glaucoma, vision loss, anxiety/depres narendra who presented to the ER with complaints of left-sided weakness starting 17 hours prior to visit. She woke at 3 a.m. on 07/25, tried to go to the bathroom, and was weak on the left side and stumble d. She was too weak to walk, so tried to pull herself up by crawling on the floor. She denied loss of consciousness. Denied any prodromal chest pain, shortness of breath, or dizziness. She went back to sleep, but experienced numbness and tingling in her left hand when she awoke. HOSPITAL COURSE BY PROBLEM: 1. Acute infarct, right occipital lobe/acute lacunar infarct of the right thalamus. The patient was evaluated by Neurology. No evidence of atrial fibrillation. Echocardiogram negative for intracardi ac shunting. She was started on aspirin and statin. There was concern of bleeding into her eye with her significant vision issues. Dr. Morelos spoke with her primary band director, josé miguel Buchanan ho agreed that aspirin is necessary given acute stroke. Will monitor blood pressure. Will not start antihypertensive at this time. The patient was evaluated by PT, OT, and had speech evaluation here. She will be transferred to inpatient rehab to continue therapies. 2. Glaucoma. Continue eyedrops. Follow up with her band director. 3. Anxiety/depression. Continue home medications. 4. Hypertension. Initially required Cardene drip. Normotensive now. May need the addition of a lo w-dose antihypertensive, such as Norvasc, in the next several days if it remains greater than 150s to 160s. GOALS: Limited resuscitation shock only. No compressions or intubation. DISPOSITION: The patient is stable for discharge to inpatient rehab. PHYSICAL EXAMINATION: VITAL SIGNS: Today, temperature 36.9, blood pressure is 148/95, heart rate is in the 80s, respiration rate is 16, 91% on room air. GENERAL: Sitting up in the chair. No acute d istress. HEENT: Right eye blindness. CV: Regular rate and rhythm. LUNGS: Clear. ABDOMEN: Soft , nontender, and nondistended with positive bowel sounds. : No Dolan. MUSCULOSKELETAL: Moving a ll 4 extremities. NEURO: 2 through 12 intact. PSYCH: Alert and oriented x3. Very pleasant. Time spent on discharge greater than 35 minutes, explaining plan to the patient and daughter and disc ussing case with Dr. Morelos. /[id number]/MODL
== END 2018-07-27 14:30 | DRG 65 ==
LOC: OBSVTOIN 21:57 → F2N 23:03
PROVIDERS: ADMIT Internal Medicine; ATTEND Internal Medicine
DX: I63.331 Cerebral infarction due to thrombosis of right posterior cerebral artery (principal); G81.92 Hemiplegia, unspecified affecting left dominant side; H53.40 Unspecified visual field defects; R29.703 NIHSS score 3; I11.9 Hypertensive heart disease without heart failure; I16.1 Hypertensive emergency; N17.8 Other acute kidney failure; H40.9 Unspecified glaucoma; H54.61 Unqualified visual loss, right eye, normal vision left eye; F32.9 Major depressive disorder, single episode, unspecified; F41.9 Anxiety disorder, unspecified
CPT/HCPCS: 84484-PO; 92523-GN; 96374; 97116-GP; 97161-GP; 97166-GO; 97530-GO; 97530-GP; 97535-GO; G8978-GP-CJ; G8979-GP-CI; G8987-GO-CK; G8988-GO-CJ; G9168-GN-CJ; G9169-GN-CI

== ENCOUNTER 2018-07-27 15:13 | Inpatient (IN) | payer OTHER ==
[2018-07-27] MEDS ORDERED: ONDANSETRON DISINTEGRATING 4 MG TAB PO PRN (16:08)
[2018-07-27] MEDS ORDERED: HYDROCODONE/APAP 5/325 TAB PO PRN (16:08)
[2018-07-27] MEDS ORDERED: ACETAMINOPHEN 325 MG TAB PO PRN (16:08)
--- NOTE | 2018-07-27 17:14 | GHP ---
POST ADMISSION PHYSICIAN EVALUATION AND REHABILITATION TREATMENT PLAN DATE OF ADMISSION: 07/27/2018 DATE OF EVALUATION: 07/27/2018 TIME OF EVALUATION: 1540 REFERRING FACILITY: [facility]. REFERRING PHYSICIAN: Dr. Myrick IMPAIRMENT GROUP: 1.1. DATE OF ONSET: 07/25/2018 DATE OF ADMISSION: 07/27/2018. CONSULTING PHYSICIANS: Neurologist, Dr. Morelos. REHABILITATION DIAGNOSIS: Cerebrovascular accident involving the right thalamus and right occipital lobe. ETIOLOGIC DIAGNOSIS: Left body involvement (right brain) HISTORY OF PRESENT ILLNESS: This patient presented to [facility] with complaints of left-sided weakness that started approximately 17 hours prior to arrival in the emergency department. She had a fall after stumbling to the bathroom. She landed on her left knee and hand. She was unable to get to the bathroom and had urinary incontinence. When she came to the emergency department, she was noted to have an elevated blood pressure of 223/107, for which she was placed on a nicardipine drip. Head CT showed a small area of edema in the anterior limb of the right internal capsule. Brain MRI showed an acute infarction in the right occipital lobe and in the right thalamus. She had atrophy in the bilateral parietal lobes. She had further imaging to search for embolic source with MR angiography and carotid Doppler. She had a thrombosed right posterior cerebral artery. Carotid Doppler showed no evidence of flow-limiting carotid stenosis. She was participating in therapies and appropriate for inpatient rehabilitation. LABORATORIES AND STUDIES: CBC was overall within normal limits. She had normal white count, but mild elevation of absolute neutrophils on 07/25/2018. The next day, her CBC was completely normal. Serum chemistry showed an elevated chloride at 111 and low carbon dioxide of 19, along with renal impairment with a creatinine of 1.2 and an estimated GFR of 43 on the day of admission. TSH was normal at 2.040. The next day 07/26/2018, she continued to have an elevated chloride at 112 and a low carbon dioxide of 21, creatinine had improved to 1.1 with a with an estimated GFR of 48. Lipid panel showed a cholesterol of 262, an LDL of 103, an HDL of 60. PRECAUTIONS: She is a fall risk. ACTIVE COMORBIDITIES: She has no active tier 1, tier 2, or tier 3 comorbidities. PAST MEDICAL HISTORY: 1. 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 2. Glaucoma. 3. Anxiety and depression. PAST SURGICAL HISTORY: She has not had any surgeries. PRE-HOSPITAL MEDICATIONS: 1. Bimatoprost 0.01% each eye q.h.s.. 2. Dorzolamide/timolol 1 drop each eye b.i.d. 3. Escitalopram 20 mg p.o. q.h.s. 4. Mirtazapine 15 mg p.o. q.h.s. ALLERGIES: She has allergy to glaucoma drops, but the medical record does not report which ones. ADMISSION MEDICATIONS: 1. Acetaminophen 650 mg p.o. q.4 hours p.r.n. 2. Aspirin 81 mg p.o. daily. 3. Atorvastatin 40 mg p.o. daily. 4. Bimatoprost 0.01% 1 drop each eye q.h.s. 5. Dorzolamide/timolol 1 drop each eye b.i.d. 6. Escitalopram 20 mg q.h.s. 7. Hydrocodone/acetaminophen 1 to 2 tablets p.o. q.4 hours p.r.n. 8. Mirtazapine 15 mg p.o. q.h.s. 9. Ondansetron 4 mg p.o. q.4 hours p.r.n. PSYCHOSOCIAL HISTORY: She has been for 30 years. She lives alone in an independent living facility in [place]. Her adult daughter and son-in- law live approximately 5 miles away. She is a nonsmoker and nondrinker. 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 FAMILY HISTORY: Noncontributory. REVIEW OF SYSTEMS: She is aware of visual loss. She says she is able to watch television if she is close to the television and she is able to read. She has abnormal sensation in the left foot. Sensation has considerably normalized in the left hand, but was abnormal initially. She has been able to get up and walk with assistance. She denies difficulty swallowing. She denies headache. She is aware of word-finding difficulty. She denies nausea, vomiting, constipation, or diarrhea. She denies chest pain or dyspnea. She denies chest pain or palpitations. She denies cough or dyspnea. She denies urinary frequency or dysuria. Otherwise, a 10-point review of systems is negative. PHYSICAL EXAM: VITAL SIGNS: Blood pressure is 170/106, heart rate is 83, respiratory rate is 14, oxygen saturation is 93% on room air, temperature is 36.8 degrees centigrade. Her weight in the hospital was 58 kg for a body mass index of 24.2. GENERAL: This is a well-nourished, well-developed woman, appears her chronologic age, dressed in street clothes, sitting in a chair, cooperative, and in no acute distress. 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 Mucous membranes are moist. Dentition is in good condition. She has an uncrowded airway, Mallampati class 1. NECK: Supple. HEART: There is a regular rate and rhythm with no murmurs, rubs, or gallops. LUNGS: Clear to auscultation bilaterally. ABDOMEN: Soft, nontender , nondistended with normoactive bowel sounds. EXTREMITIES: There is no cyanosis, clubbing, or edema. NEUROLOGIC: She is alert, oriented x3,. Other than strabismus, cranial nerves 2-12 appear to be grossly intact. Regarding motor strength, she has a 4/5 strength in the left triceps and the left hip flexor. Strength otherwise overall is 5/5. Sensation is intact to light touch and there is no extinction to double simultaneous stimulation. Deep tendon reflexes are 2+ bilaterally at the biceps, patellar, and Achilles tendons. There is left pronator drift. [id number] with the finger held relatively close to her face due to her visual loss is intact on the right side and is ataxic and with past-pointing on the left side. CURRENT LEVEL OF FUNCTION PER PRE-ADMISSION SCREEN: Regarding diet, feeding, and swallowing, she was on a regular diet. She needed minimal assistance after setup and verbal cues to eat. Grooming required minimal assistance and voice cues. Bed mobility required contact guard assist. Transfers required minimal assist with voice cues. She used a 4-wheeled walker. She needed minimal assist for standing balance. Regarding endurance, she was noted to have decreased activity tolerance. Gait required minimal assist with voice cues. She had left lower extremity weakness. She was able to walk 150 feet. There was decreased coordination versus deficit due to low vision. Regarding communication, she was noted to have mild word retrieval deficits. Regarding cognition, she had short-term memory deficits. She was considered to be a fall risk. On today's exam, there are no significant changes from the preadmission screen. 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 In the hospital, she had a markedly elevated blood pressure and required a nicardipine drip. She was found to have dyslipidemia. She was treated with atorvastatin. Aspirin was begun after consultation with her operations supervisor 2nd shift due to her history of retinal hemorrhage. 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 Echocardiogram showed LVH, but no embolic source, and overall, the CVA was considered to be small-vessel lacunar. She was participating in therapies and appropriate for inpatient rehabilitation. Her goal is to complete a rehabilitation stay and then return home to independent living with support from her daughter and supportive services. For a safe discharge, she will need to achieve modified independent level for self- care and mobility with the least restrictive device on level surfaces. She will need to know safety strategies. She likely will continue to require support for meals and house cleaning. There will need to be family training. She will have therapy with physical therapy, occupational therapy, and speech and language pathology for 60 minutes for each discipline each day on 5 to 7 days of the week. Her expected duration of stay is 7 to 10 days. It is anticipated that upon discharge, she will continue to benefit from home health services, including RN INTERNAL MEDICINE, Social Work, OT and PT. Additionally, she will benefit from a stroke support group. PLAN: 1. Cerebrovascular accident involving the right thalamus and occipital lobe with sensory abnormalities on the left side of her body and left sided visual impairment in a woman with preexisting right-sided visual impairment, as well as cataracts. PT and OT to optimize mobility and activities of daily living. Specific vision testing per Occupational therapy. 2. Memory loss and word-finding deficits to be assessed and treated per Speech and Language Pathology. 3. Secondary prevention of cerebrovascular accident with aspirin, blood pressure control, and atorvastatin for dyslipidemia. 4. Hypertension. She reports a history of white coat hypertension. Her blood pressure has been most often well above target of 140/90 during her hospital stay. Will initiate amlodipine at 2.5 mg daily starting tomorrow. Will monitor her blood pressure and adjust or add medications as needed. 5. Glaucoma. Continue her eyedrops. 6. Anxiety and depression. Continue citalopram and mirtazapine. 7. Advanced directives were discussed in detail during her hospitalization. Her wishes were to have defibrillation only. It was explained to her that the first indicated procedure should she be found with no pulse, not breathing, and unconscious would be chest compressions, followed by defibrillation, followed by IV medications in further attempts to achieve return of spontaneous circulation. When she understood the protocol, she was agreeable to chest compressions, defibrillation, and medications; however, she does not want to be placed on a breathing machine. FOLLOW-UP. Primary care provider is Dr. Hoang Elliott. She will have follow up with her operations supervisor 2nd shift at the [facility] in [place] is Dr. Amezcua. She may also benefit from a neuroophthalmology consultation. /[id number]/MODL MTDD
[2018-07-27] MEDS: BIMATOPROST 0.01% 2.5 ML OPHT.BTL EACHEYE SCH (19:58)
[2018-07-27] MEDS: ESCITALOPRAM OXALATE 10 MG TAB PO SCH (19:58)
[2018-07-27] MEDS: DORZOLAMIDE EACHEYE SCH (19:58)
[2018-07-27] MEDS: TIMOLOL EACHEYE SCH (19:58)
[2018-07-27] MEDS: MIRTAZAPINE 15 MG TAB PO SCH (19:59)
[2018-07-28] MEDS: ATORVASTATIN CALCIUM 40 MG TAB PO SCH (08:45)
[2018-07-28] MEDS: ASPIRIN EC 81 MG TAB PO SCH (08:46)
--- NOTE | 2018-07-28 09:40 | SOAPPROG ---
SOAP Progress Note Assessment/Plan: Assessment: Cerebrovascular accident involving the right thalamus and occipital lobe with sensory abnormalities on the left side of her body and left sided visual impairment in a woman with preexisting right-sided visual impairment, as well as cataracts. * PT and OT to optimize mobility and activities of daily living. Specific vision testing per Occupational therapy. Memory loss and word-finding deficits to be assessed and treated per Speech and Language Pathology. Secondary prevention of cerebrovascular accident with aspirin, blood pressure control, and atorvastatin for dyslipidemia. Hypertension. She reports a history of white coat hypertension. Her blood pressure has been most often well above target of 140/90 during her hospital stay. Will initiate amlodipine at 2.5 mg daily starting 07/28/2018. Will monitor her blood pressure and adjust or add medications as needed. Question of bleeding gums. Only anticoagulant/anti-platelet agent is 81 mg of aspirin. She did not receive any other anticoagulants during her hospital stay. She denies history of dental problems. If it continues will check CBC and coagulation profile. Glaucoma. Continue her eyedrops. Anxiety and depression. Continue citalopram and mirtazapine. DVT prophylaxis. She has good mobility and no hemiplegia. Will not initiate pharmacologic anticoagulation, especially in light of history of retinal hemorrhage. FOLLOW-UP. Primary care provider is Dr. Hoang Elliott. She will have follow up with her tile mechanic helper at the [facility] in [place] is Dr. Amezcua. She may also benefit from a neuroophthalmology consultation. 07/28/18 12:10 Subjective: Has numbness and tingling of left foot. Does not interfere with sleep and is not very bothersome. Reports that therapy has concerns that walker is not helpful had increases collisions with objects. Otherwise without complaints. Not in pain. Sleeping well. She reports that the OT noted in pain contains when she has put out her toothpaste after brushing her teeth. She reports she did not taste blood. Objective: Vital Signs Temp Pulse Resp BP Pulse Ox 37.1 C 74 16 137/83 H 93 07/28/18 06:35 07/28/18 06:35 07/28/18 06:35 07/28/18 08:45 07/28/18 06:35 07/27/18 07/28/18 07/29/18 05:59 05:59 05:59 Intake Total 550 200 Output Total 450 200 Balance 100 0 Physical Exam - Physical Exam General Appearance: WD/WN, alert, no apparent distress Respiratory: No respiratory distress, No accessory muscle use Skin: normal color, warm/dry Neuro/Psych: alert, normal mood/affect, oriented x 3 ICD10 Worksheet Patient Problems: Problems Problem Status Onset CVA (cerebral vascular accident) Acute Numbness and tingling of left arm and leg Acute
[2018-07-28] MEDS: DORZOLAMIDE EACHEYE SCH ×2 (10:43→20:04)
[2018-07-28] MEDS: TIMOLOL EACHEYE SCH ×2 (10:43→20:04)
--- NOTE | 2018-07-28 14:03 | PDOREHIP ---
Admission [facility] - Admission - 3 Day Assessment Period Admission Date/Day 1: 07/27/18 Day 2: 07/28/18 Day 3: 07/29/18 - Active Diagnoses Comorbidities and Co-existing Conditions at Admission: 35731. None of the Above - Skin Conditions Unhealed Pressure Ulcer (1 or more/Stage 1 or >)-Admission: 0. No # Stage 1 Pressure Ulcers-Admission: 0 # Stage 2 Pressure Ulcers-Admission: 0 # Stage 3 Pressure Ulcers-Admission: 0 # Stage 4 Pressure Ulcers-Admission: 0 # Unstageable Pressure Ulcers (Non-remove Dress)-Admission: 0 # Unstageable Pressure Ulcers (Slough/Eschar)-Admission: 0 # Unstageable Pressure Ulcers (Deep Tissue Injury)-Admission: 0
[2018-07-28] MEDS: ESCITALOPRAM OXALATE 10 MG TAB PO SCH (20:03)
[2018-07-28] MEDS: MIRTAZAPINE 15 MG TAB PO SCH (20:04)
[2018-07-28] MEDS: BIMATOPROST 0.01% 2.5 ML OPHT.BTL EACHEYE SCH (20:04)
[2018-07-29] MEDS: ATORVASTATIN CALCIUM 40 MG TAB PO SCH (08:35)
[2018-07-29] MEDS: ASPIRIN EC 81 MG TAB PO SCH (08:36)
[2018-07-29] MEDS: DORZOLAMIDE EACHEYE SCH ×2 (09:49→20:20)
[2018-07-29] MEDS: TIMOLOL EACHEYE SCH ×2 (09:49→20:20)
--- NOTE | 2018-07-29 13:33 | SOAPPROG ---
SOAP Progress Note Assessment/Plan: Assessment: Cerebrovascular accident involving the right thalamus and occipital lobe with sensory abnormalities on the left side of her body and left sided visual impairment in a woman with preexisting right-sided visual impairment, as well as cataracts. * Per OT, visual issues may include hemianopsia and hemineglect. New shoes are significantly more severe than pre-existing vision loss in the right eye. * PT and OT to optimize mobility and activities of daily living. Specific vision testing per Occupational therapy. Memory loss and word-finding deficits to be assessed and treated per Speech and Language Pathology. Secondary prevention of cerebrovascular accident with aspirin, blood pressure control, and atorvastatin for dyslipidemia. Hypertension. She reports a history of white coat hypertension. Her blood pressure has been most often well above target of 140/90 during her hospital stay. Started amlodipine at 2.5 mg daily starting 07/28/2018. Increase to 5 mg QD on 07/29/2018. Will monitor her blood pressure and adjust or add medications as needed. Question of bleeding gums. Only anticoagulant/anti-platelet agent is 81 mg of aspirin. She did not receive any other anticoagulants during her hospital stay. She denies history of dental problems. If it continues will check CBC and coagulation profile. Glaucoma. Continue her eyedrops. Anxiety and depression. Continue citalopram and mirtazapine. DVT prophylaxis. She has good mobility and no hemiplegia. Will not initiate pharmacologic anticoagulation, especially in light of history of retinal hemorrhage. DISPOSITION: With severe visual deficits it is unclear whether she will be able to return to independent living. Might consider PILAR. Await improvement with therapies. FOLLOW-UP. Primary care provider is Dr. Hoang Elliott. She will have follow up with her corporate security officer at the [facility] in [place] is Dr. Amezcua. She may also benefit from a neuroophthalmology consultation. 07/29/18 13:30 Subjective: Notes some memory loss in attempting to recall of her medications with OUTCOMES MANAGER. Sleeping well. Not in pain. No fevers or chills, no cough or dyspnea. Objective: Vital Signs Temp Pulse Resp BP Pulse Ox 36.7 C 77 18 135/86 H 93 07/29/18 07:30 07/29/18 07:30 07/29/18 07:30 07/29/18 10:05 07/29/18 07:30 07/28/18 07/29/18 07/30/18 05:59 05:59 05:59 Intake Total 550 730 Output Total 450 550 Balance 100 180 Physical Exam - Physical Exam General Appearance: WD/WN, alert, no apparent distress Respiratory: No respiratory distress, No accessory muscle use Skin: normal color, warm/dry Neuro/Psych: alert, normal mood/affect, oriented x 3, abnormal gait (Slow and slightly wide based, with front wheeled walker. Needs contact guard assist for steering to avoid colliding with objects on her left.) ICD10 Worksheet Patient Problems: Problems Problem Status Onset CVA (cerebral vascular accident) Acute Numbness and tingling of left arm and leg Acute
[2018-07-29] MEDS: ESCITALOPRAM OXALATE 10 MG TAB PO SCH (20:15)
[2018-07-29] MEDS: MIRTAZAPINE 15 MG TAB PO SCH (20:16)
[2018-07-29] MEDS: BIMATOPROST 0.01% 2.5 ML OPHT.BTL EACHEYE SCH (20:20)
[2018-07-30] MEDS: ASPIRIN EC 81 MG TAB PO SCH (08:47)
[2018-07-30] MEDS: ATORVASTATIN CALCIUM 40 MG TAB PO SCH (08:47)
[2018-07-30] MEDS: DORZOLAMIDE EACHEYE SCH ×2 (09:10→21:28)
[2018-07-30] MEDS: TIMOLOL EACHEYE SCH ×2 (09:10→21:28)
--- NOTE | 2018-07-30 12:27 | SOAPPROG ---
SOAP Progress Note Assessment/Plan: Assessment: Cerebrovascular accident involving the right thalamus and occipital lobe with sensory abnormalities on the left side of her body and left sided visual impairment in a woman with preexisting right-sided visual impairment, as well as cataracts. * Initial functional independence measure is 79 as of 07/30/2018. Therapies node left visual field loss verses 8 normal. Trialing walker versus cane. She often collided with objects on the left using the walker. She has ambulated greater than 3rd feet with contact guard assist for steering. She requires structure in cues for activities of daily living. She can mostly dress herself but requires assistance for fine motor tasks including fastening her bra. * Continue PT and OT to optimize mobility and activities of daily living. Specific vision testing per Occupational therapy. Memory loss and word-finding deficits * Scored 23/30 on the [facility] mental status exam. Has mild to moderate decrease attention memory and word retrieval. * Continue Speech and Language Pathology. Secondary prevention of cerebrovascular accident with aspirin, blood pressure control, and atorvastatin for dyslipidemia. Hypertension. She reports a history of white coat hypertension. Her blood pressure has been most often well above target of 140/90 during her hospital stay. * Started amlodipine at 2.5 mg daily starting 07/28/2018. Increased to 5 mg QD on 07/29/2018. * Adequate control, 07/30/2018. Urinary incontinence at night. May be due to visual challenges delaying ambulation to bathroom, however it depresses her functional independence measure by 6 points. Initiate bedside commode, 07/30/2018. Question of bleeding gums. Only anticoagulant/anti-platelet agent is 81 mg of aspirin. She did not receive any other anticoagulants during her hospital stay. She denies history of dental problems. If it continues will check CBC and coagulation profile. Glaucoma. Continue her eyedrops. Anxiety and depression. Continue citalopram and mirtazapine. DVT prophylaxis. She has good mobility and no hemiplegia. Will not initiate pharmacologic anticoagulation, especially in light of history of retinal hemorrhage. DISPOSITION: Attended staffing, 15 min. Discussed with case management, dietitian, nursing, PT, OT, COOK ROOM SUPERVISOR. Unclear whether she will be able to achieve sufficient independence to return to independent living facility; might need increased services. Planning for home visit to assess function in a familiar environment and for family conference. Tentative discharge date set for 1/2/ 2018. FOLLOW-UP. Primary care provider is Dr. Hoang Elliott. She will have follow up with her court orderly at the [facility] in [place] is Dr. Amezcua. She may also benefit from a neuroophthalmology consultation. 07/30/18 12:21 Subjective: No complaints. Not in pain. Slept well; she thinks maybe too well as she had episode of urinary incontinence overnight. After awakening and calling nurse it took her a very long time due to visual deficit to get to the bathroom and had incontinence on the way. Objective: Vital Signs Temp Pulse Resp BP Pulse Ox 37.1 C 70 16 132/84 H 94 07/30/18 07:41 07/30/18 07:41 07/30/18 07:41 07/30/18 08:47 07/30/18 07:41 07/29/18 07/30/18 07/31/18 05:59 05:59 05:59 Intake Total 730 1480 Output Total 550 Balance 180 1480 - Time Spent With Patient Time Spent With Patient: Greater than 35 min floor time today, including more than 50% of time in coordination of care during staffing meeting, and counseling patient. Physical Exam - Physical Exam General Appearance: WD/WN, alert, no apparent distress Respiratory: No respiratory distress, No accessory muscle use Skin: normal color, warm/dry Neuro/Psych: alert, normal mood/affect, oriented x 3, other (Very low vision, holding iPad very close to her face while setting up voice recognition with speech therapist.) ICD10 Worksheet Patient Problems: Problems Problem Status Onset CVA (cerebral vascular accident) Acute Numbness and tingling of left arm and leg Acute
[2018-07-30] MEDS: MIRTAZAPINE 15 MG TAB PO SCH (21:28)
[2018-07-30] MEDS: ESCITALOPRAM OXALATE 10 MG TAB PO SCH (21:28)
[2018-07-30] MEDS: BIMATOPROST 0.01% 2.5 ML OPHT.BTL EACHEYE SCH (21:28)
[2018-07-31] MEDS: ASPIRIN EC 81 MG TAB PO SCH (09:12)
[2018-07-31] MEDS: ATORVASTATIN CALCIUM 40 MG TAB PO SCH (09:13)
[2018-07-31] MEDS: TIMOLOL EACHEYE SCH ×2 (09:14→20:48)
[2018-07-31] MEDS: DORZOLAMIDE EACHEYE SCH ×2 (09:14→20:48)
--- NOTE | 2018-07-31 13:57 | SOAPPROG ---
SOAP Progress Note Assessment/Plan: Assessment: Cerebrovascular accident involving the right thalamus and occipital lobe with sensory abnormalities on the left side of her body and left sided visual impairment in a woman with preexisting right-sided visual impairment, as well as cataracts. * Initial functional independence measure is 79 as of 07/30/2018. Therapies node left visual field loss versus ignoral. Trialing walker versus cane. She often collides with objects on the left using the walker. She has ambulated greater than 150 feet with contact guard assist for steering. She requires structure and cues for activities of daily living. She can mostly dress herself but requires assistance for fine motor tasks including fastening her bra. * Continue PT and OT to optimize mobility and activities of daily living. Specific vision testing per Occupational therapy. Memory loss and word-finding deficits * Scored 23/30 on the [facility] mental status exam. Has mild to moderate decrease attention memory and word retrieval. * Continue Speech and Language Pathology. Secondary prevention of cerebrovascular accident with aspirin, blood pressure control, and atorvastatin for dyslipidemia. Hypertension. She reports a history of white coat hypertension. Her blood pressure has been most often well above target of 140/90 during her hospital stay. * Started amlodipine at 2.5 mg daily starting 07/28/2018. Increased to 5 mg QD on 07/29/2018. * Adequate control, 07/30/2018. Urinary incontinence at night. May be due to visual challenges delaying ambulation to bathroom, however it depresses her functional independence measure by 6 points. Initiate bedside commode, 07/30/2018. Question of bleeding gums. Only anticoagulant/anti-platelet agent is 81 mg of aspirin. She did not receive any other anticoagulants during her hospital stay. She denies history of dental problems. If it continues will check CBC and coagulation profile. Glaucoma. Continue her eyedrops. Anxiety and depression. Continue citalopram and mirtazapine. DVT prophylaxis. She has good mobility and no hemiplegia. Will not initiate pharmacologic anticoagulation, especially in light of history of retinal hemorrhage. DISPOSITION: Unclear whether she will be able to achieve sufficient independence to return to independent living facility; might need increased services. Planning for home visit to assess function in a familiar environment and for family conference. Tentative discharge date set for 08/11/2017. FOLLOW-UP. Primary care provider is Dr. Hoang Elliott. She will have follow up with her auto garage attendant at the [facility] in [place] is Dr. Amezcua. She may also benefit from a neuroophthalmology consultation. 07/31/18 13:55 Subjective: No complaints. Sleeping well. Not in pain. Aware of functional limitations due to low vision. Objective: Vital Signs Temp Pulse Resp BP Pulse Ox 36.8 C 76 18 138/84 H 95 07/31/18 09:00 07/31/18 09:00 07/31/18 09:00 07/31/18 09:13 07/31/18 09:00 07/30/18 07/31/18 08/01/18 05:59 05:59 05:59 Intake Total 1480 1800 Output Total 1150 Balance 1480 650 Physical Exam - Physical Exam General Appearance: WD/WN, alert, no apparent distress Respiratory: No respiratory distress, No accessory muscle use Skin: normal color, warm/dry Neuro/Psych: alert, normal mood/affect, oriented x 3, sensory deficit (Able to find mute button on television remote by holding it very close to her left eye.) ICD10 Worksheet Patient Problems: Problems Problem Status Onset CVA (cerebral vascular accident) Acute Numbness and tingling of left arm and leg Acute
[2018-07-31] MEDS: BIMATOPROST 0.01% 2.5 ML OPHT.BTL EACHEYE SCH (20:48)
[2018-07-31] MEDS: ESCITALOPRAM OXALATE 10 MG TAB PO SCH (20:49)
[2018-07-31] MEDS: MIRTAZAPINE 15 MG TAB PO SCH (20:49)
[2018-08-01] MEDS: TIMOLOL EACHEYE SCH ×2 (08:00→20:54)
[2018-08-01] MEDS: DORZOLAMIDE EACHEYE SCH ×2 (08:00→20:54)
[2018-08-01] MEDS: ATORVASTATIN CALCIUM 40 MG TAB PO SCH (08:22)
[2018-08-01] MEDS: ASPIRIN EC 81 MG TAB PO SCH (08:22)
--- NOTE | 2018-08-01 12:57 | SOAPPROG ---
SOAP Progress Note Assessment/Plan: Assessment: Cerebrovascular accident involving the right thalamus and occipital lobe with sensory abnormalities on the left side of her body and left sided visual impairment in a woman with preexisting right-sided visual impairment, as well as cataracts. * Initial functional independence measure is 79 as of 07/30/2018. Therapies note left visual field loss versus ignoral. Trialing walker versus cane. She often collides with objects on the left using the walker. She has ambulated greater than 150 feet with contact guard assist for steering. She requires structure and cues for activities of daily living. She can mostly dress herself but requires assistance for fine motor tasks including fastening her bra. * Continue PT and OT to optimize mobility and activities of daily living. Specific vision testing per Occupational therapy. Memory loss and word-finding deficits * Scored 23/30 on the [facility] mental status exam. Has mild to moderate decrease attention memory and word retrieval. * Continue Speech and Language Pathology. Secondary prevention of cerebrovascular accident with aspirin, blood pressure control, and atorvastatin for dyslipidemia. Hypertension. She reports a history of white coat hypertension. Her blood pressure has been most often well above target of 140/90 during her hospital stay. * Started amlodipine at 2.5 mg daily starting 07/28/2018. Increased to 5 mg QD on 07/29/2018. * Adequate control. Urinary incontinence at night. May be due to visual challenges delaying ambulation to bathroom, however it depresses her functional independence measure by 6 points. Initiate bedside commode, 07/30/2018. Question of bleeding gums. Only anticoagulant/anti-platelet agent is 81 mg of aspirin. She did not receive any other anticoagulants during her hospital stay. She denies history of dental problems. If it continues will check CBC and coagulation profile. Glaucoma. Continue her eyedrops. Anxiety and depression. Continue citalopram and mirtazapine. DVT prophylaxis. She has good mobility and no hemiplegia. Will not initiate pharmacologic anticoagulation, especially in light of history of retinal hemorrhage. DISPOSITION: Unclear whether she will be able to achieve sufficient independence to return to independent living facility; might need increased services. Planning for home visit to assess function in a familiar environment and for family conference. Tentative discharge date set for 08/11/2017. FOLLOW-UP. Primary care provider is Dr. Hoang Elliott. She will have follow up with her business information consultant at the [facility] in [place] is Dr. Amezcua. She may also benefit from a neuroophthalmology consultation. 08/01/18 12:55 Subjective: No complaints. Sleeping well. Not in pain. Continues to have low vision. Reports she is working on using trekking pole with therapies, otherwise using front wheeled walker with nursing. Objective: Vital Signs Temp Pulse Resp BP Pulse Ox 36.6 C 81 18 154/91 H 93 08/01/18 08:20 08/01/18 08:20 08/01/18 08:20 08/01/18 08:22 08/01/18 08:20 07/31/18 08/01/18 08/02/18 05:59 05:59 05:59 Intake Total 1800 840 Output Total 1150 200 Balance 650 640 Physical Exam - Physical Exam General Appearance: WD/WN, alert, no apparent distress Respiratory: No respiratory distress, No accessory muscle use Skin: normal color, warm/dry Neuro/Psych: alert, normal mood/affect, oriented x 3 ICD10 Worksheet Patient Problems: Problems Problem Status Onset CVA (cerebral vascular accident) Acute Numbness and tingling of left arm and leg Acute
[2018-08-01] MEDS: ESCITALOPRAM OXALATE 10 MG TAB PO SCH (20:46)
[2018-08-01] MEDS: MIRTAZAPINE 15 MG TAB PO SCH (20:46)
[2018-08-01] MEDS: BIMATOPROST 0.01% 2.5 ML OPHT.BTL EACHEYE SCH (20:48)
[2018-08-02] MEDS: ATORVASTATIN CALCIUM 40 MG TAB PO SCH (08:12)
[2018-08-02] MEDS: ASPIRIN EC 81 MG TAB PO SCH (08:13)
[2018-08-02] MEDS: DORZOLAMIDE EACHEYE SCH (09:02)
[2018-08-02] MEDS: TIMOLOL EACHEYE SCH (09:02)
[2018-08-02] MEDS ORDERED: amLODIPine BESYLATE 5 MG TAB PO ONE (09:17)
--- NOTE | 2018-08-02 09:36 | SOAPPROG ---
SOAP Progress Note Assessment/Plan: Assessment: Cerebrovascular accident involving the right thalamus and occipital lobe with sensory abnormalities on the left side of her body and left sided visual impairment in a woman with preexisting right-sided visual impairment, as well as cataracts. * Initial functional independence measure is 79 as of 07/30/2018. Therapies note left visual field loss versus ignoral. Trialing walker versus cane. She often collides with objects on the left using the walker. She has ambulated greater than 150 feet with contact guard assist for steering. She requires structure and cues for activities of daily living. She can mostly dress herself but requires assistance for fine motor tasks including fastening her bra. * Continue PT and OT to optimize mobility and activities of daily living. Specific vision testing per Occupational therapy. Memory loss and word-finding deficits * Scored 23/30 on the [facility] mental status exam. Has mild to moderate decrease attention memory and word retrieval. * Continue Speech and Language Pathology. Secondary prevention of cerebrovascular accident with aspirin, blood pressure control, and atorvastatin for dyslipidemia. Hypertension. She reports a history of white coat hypertension. Her blood pressure has been most often well above target of 140/90 during her hospital stay. * Started amlodipine at 2.5 mg daily starting 07/28/2018. Increased to 5 mg QD on 07/29/2018. Elevated times several days as of 08/02/2018. Increase amlodipine to 10 mg beginning 08/02/2018, with extra dose of 5 mg. * Appropriate to use amlodipine rather than 2nd agent e.g. diuretic or DAILY inhibitor or ARB, as she had renal insufficiency in the hospital with GFR in the 40s. Urinary incontinence at night. May be due to visual challenges delaying ambulation to bathroom, however it depresses her functional independence measure by 6 points. Initiate bedside commode, 07/30/2018. Question of bleeding gums. Only anticoagulant/anti-platelet agent is 81 mg of aspirin. She did not receive any other anticoagulants during her hospital stay. She denies history of dental problems. If it continues will check CBC and coagulation profile. Glaucoma. Continue her eyedrops. Anxiety and depression. Continue citalopram and mirtazapine. DVT prophylaxis. She has good mobility and no hemiplegia. Will not initiate pharmacologic anticoagulation, especially in light of history of retinal hemorrhage. DISPOSITION: Unclear whether she will be able to achieve sufficient independence to return to independent living facility, due to low vision; might need increased services. Planning for home visit to assess function in a familiar environment and for family conference. Tentative discharge date set for 08/11/2017. FOLLOW-UP. Primary care provider is Dr. Hoang Elliott. She will have follow up with her transliterator at the [facility] in [place] is Dr. Amezcua. She may also benefit from a neuroophthalmology consultation. 08/02/18 09:33 Subjective: No complaints. Sleeping well. Not in pain. Denies anxiety. Objective: Vital Signs Temp Pulse Resp BP Pulse Ox 37.2 C 76 16 154/94 H 94 08/02/18 05:55 08/02/18 05:55 08/02/18 05:55 08/02/18 08:13 08/02/18 05:55 08/01/18 08/02/18 08/03/18 05:59 05:59 05:59 Intake Total 840 940 Output Total 200 Balance 640 940 Physical Exam - Physical Exam General Appearance: WD/WN, alert, no apparent distress Respiratory: normal breath sounds, No crackles, No rhonchi, No wheezing Cardiac/Chest: regular rate, rhythm, JVD (To just below angle of jaw), No edema , No diastolic murmur, No systolic murmur Skin: normal color, warm/dry Neuro/Psych: alert, normal mood/affect, oriented x 3 ICD10 Worksheet Patient Problems: Problems Problem Status Onset CVA (cerebral vascular accident) Acute Numbness and tingling of left arm and leg Acute
[2018-08-02] MEDS: DORZOLAMIDE/TIMOLOL 10 ML OPHT.BTL EACHEYE SCH (21:33)
[2018-08-02] MEDS: BIMATOPROST 0.01% 2.5 ML OPHT.BTL EACHEYE SCH (21:34)
[2018-08-02] MEDS: ESCITALOPRAM OXALATE 10 MG TAB PO SCH (21:41)
[2018-08-02] MEDS: MIRTAZAPINE 15 MG TAB PO SCH (21:42)
[2018-08-03] MEDS: ASPIRIN EC 81 MG TAB PO SCH (08:45)
[2018-08-03] MEDS: ATORVASTATIN CALCIUM 40 MG TAB PO SCH (08:45)
[2018-08-03] MEDS: DORZOLAMIDE/TIMOLOL 10 ML OPHT.BTL EACHEYE SCH ×2 (09:06→20:55)
--- NOTE | 2018-08-03 13:26 | SOAPPROG ---
SOAP Progress Note Assessment/Plan: Assessment: Cerebrovascular accident involving the right thalamus and occipital lobe with sensory abnormalities on the left side of her body and left sided visual impairment in a woman with preexisting right-sided visual impairment, as well as cataracts. * Initial functional independence measure is 79 as of 07/30/2018. Therapies note left visual field loss versus ignoral. Trialing walker versus cane. She often collides with objects on the left using the walker. She has ambulated greater than 150 feet with contact guard assist for steering. She requires structure and cues for activities of daily living. She can mostly dress herself but requires assistance for fine motor tasks including fastening her bra. * Continue PT and OT to optimize mobility and activities of daily living. Specific vision testing per Occupational therapy. Memory loss and word-finding deficits * Scored 23/30 on the [facility] mental status exam. Has mild to moderate decrease attention memory and word retrieval. * Continue Speech and Language Pathology. Secondary prevention of cerebrovascular accident with aspirin, blood pressure control, and atorvastatin for dyslipidemia. Hypertension. She reports a history of white coat hypertension. Her blood pressure has been most often well above target of 140/90 during her hospital stay. * Started amlodipine at 2.5 mg daily starting 07/28/2018. Increased to 5 mg QD on 07/29/2018. Elevated times several days as of 08/02/2018. Increase amlodipine to 10 mg beginning 08/02/2018, with extra dose of 5 mg. * Appropriate to use amlodipine rather than 2nd agent e.g. diuretic or DAILY inhibitor or ARB, as she had renal insufficiency in the hospital with GFR in the 40s. * Well controlled as of 08/03/2018. Urinary incontinence at night. May be due to visual challenges delaying ambulation to bathroom, however it depresses her functional independence measure by 6 points. Initiate bedside commode, 07/30/2018. Question of bleeding gums. Only anticoagulant/anti-platelet agent is 81 mg of aspirin. She did not receive any other anticoagulants during her hospital stay. She denies history of dental problems. If it continues will check CBC and coagulation profile. Glaucoma. Continue her eyedrops. Anxiety and depression. Continue citalopram and mirtazapine. DVT prophylaxis. She has good mobility and no hemiplegia. Will not initiate pharmacologic anticoagulation, especially in light of history of retinal hemorrhage. DISPOSITION: Unclear whether she will be able to achieve sufficient independence to return to independent living facility, due to low vision; might need increased services. Planning for home visit to assess function in a familiar environment and for family conference. Tentative discharge date set for 08/11/2017. FOLLOW-UP. Primary care provider is Dr. Hoang Elliott. She will have follow up with her hospital mortician at the [facility] in [place] is Dr. Amezcua. She may also benefit from a neuroophthalmology consultation. 08/03/18 13:25 Subjective: No complaints. Not in pain. Sleeping well. Wishes she could see better. Objective: Vital Signs Temp Pulse Resp BP Pulse Ox 36.9 C 79 16 136/81 H 95 08/03/18 05:10 08/03/18 05:10 08/03/18 05:10 08/03/18 08:46 08/03/18 05:10 08/02/18 08/03/18 08/04/18 05:59 05:59 05:59 Intake Total 940 1100 Output Total 700 300 Balance 940 400 -300 Physical Exam - Physical Exam General Appearance: WD/WN, alert, no apparent distress Respiratory: No respiratory distress, No accessory muscle use Skin: normal color, warm/dry Neuro/Psych: alert, normal mood/affect, oriented x 3, sensory deficit (Visual impairment), other (Ambulates with front wheeled walker, step through pattern, normal base of support, therapist providing standby assist.) ICD10 Worksheet Patient Problems: Problems Problem Status Onset CVA (cerebral vascular accident) Acute Numbness and tingling of left arm and leg Acute
[2018-08-03] MEDS: MIRTAZAPINE 15 MG TAB PO SCH (20:49)
[2018-08-03] MEDS: ESCITALOPRAM OXALATE 10 MG TAB PO SCH (20:49)
[2018-08-03] MEDS: BIMATOPROST 0.01% 2.5 ML OPHT.BTL EACHEYE SCH (20:50)
[2018-08-04] MEDS: ASPIRIN EC 81 MG TAB PO SCH (08:37)
[2018-08-04] MEDS: ATORVASTATIN CALCIUM 40 MG TAB PO SCH (08:37)
[2018-08-04] MEDS: DORZOLAMIDE/TIMOLOL 10 ML OPHT.BTL EACHEYE SCH ×2 (09:08→20:10)
--- NOTE | 2018-08-04 11:39 | SOAPPROG ---
SOAP Progress Note Assessment/Plan: Assessment: Cerebrovascular accident involving the right thalamus and occipital lobe with sensory abnormalities on the left side of her body and left sided visual impairment in a woman with preexisting right-sided visual impairment, as well as cataracts. * Initial functional independence measure is 79 as of 07/30/2018. Therapies note left visual field loss versus ignoral. Trialing walker versus cane. She often collides with objects on the left using the walker. She has ambulated greater than 150 feet with contact guard assist for steering. She requires structure and cues for activities of daily living. She can mostly dress herself but requires assistance for fine motor tasks including fastening her bra. * Continue PT and OT to optimize mobility and activities of daily living. Specific vision testing per Occupational therapy. * Literature review shows approximately 50% of patients have improvement in vision the relationship of MRI findings to improvement is more fine grain than this provider can ascertain. Memory loss and word-finding deficits * Scored 23/30 on the [facility] mental status exam. Has mild to moderate decrease attention memory and word retrieval. * Continue Speech and Language Pathology. Secondary prevention of cerebrovascular accident with aspirin, blood pressure control, and atorvastatin for dyslipidemia. Hypertension. She reports a history of white coat hypertension. Her blood pressure has been most often well above target of 140/90 during her hospital stay. * Started amlodipine at 2.5 mg daily starting 07/28/2018. Increased to 5 mg QD on 07/29/2018. Elevated times several days as of 08/02/2018. Increase amlodipine to 10 mg beginning 08/02/2018, with extra dose of 5 mg. * Appropriate to use amlodipine rather than 2nd agent e.g. diuretic or DAILY inhibitor or ARB, as she had renal insufficiency in the hospital with GFR in the 40s. * Well controlled as of 08/03/2018. Urinary incontinence at night. May be due to visual challenges delaying ambulation to bathroom, however it depresses her functional independence measure by 6 points. Initiate bedside commode, 07/30/2018. Question of bleeding gums. Only anticoagulant/anti-platelet agent is 81 mg of aspirin. She did not receive any other anticoagulants during her hospital stay. She denies history of dental problems. If it continues will check CBC and coagulation profile. Glaucoma. Continue her eyedrops. Anxiety and depression. Continue citalopram and mirtazapine. DVT prophylaxis. She has good mobility and no hemiplegia. Will not initiate pharmacologic anticoagulation, especially in light of history of retinal hemorrhage. DISPOSITION: Unclear whether she will be able to achieve sufficient independence to return to independent living facility, due to low vision; might need increased services. Planning for home visit 08/05/2018. Tentative discharge date set for 08/11/2017. FOLLOW-UP. Primary care provider is Dr. Hoang Elliott. She will have follow up with her sticker on at the [facility] in [place] is Dr. Amezcua. She will benefit from a neuroophthalmology consultation. 08/04/18 11:37 Subjective: No complaints. Reports that she has been trying to write. Not sure if she has had improvement in vision which remains the major challenge for functional improvement. Objective: Vital Signs Temp Pulse Resp BP Pulse Ox 37.1 C 76 15 137/84 H 94 08/04/18 06:23 08/04/18 06:23 08/04/18 06:23 08/04/18 08:37 08/04/18 06:23 08/03/18 08/04/18 08/05/18 05:59 05:59 05:59 Intake Total 1100 1490 Output Total 700 550 Balance 400 940 Physical Exam - Physical Exam General Appearance: WD/WN, alert, no apparent distress Respiratory: No respiratory distress, No accessory muscle use Skin: normal color, warm/dry Neuro/Psych: alert, normal mood/affect, oriented x 3, sensory deficit (Low vision) ICD10 Worksheet Patient Problems: Problems Problem Status Onset CVA (cerebral vascular accident) Acute Numbness and tingling of left arm and leg Acute
[2018-08-04] MEDS: BIMATOPROST 0.01% 2.5 ML OPHT.BTL EACHEYE SCH (20:09)
[2018-08-04] MEDS: MIRTAZAPINE 15 MG TAB PO SCH (20:10)
[2018-08-04] MEDS: ESCITALOPRAM OXALATE 10 MG TAB PO SCH (20:10)
[2018-08-05] MEDS: ATORVASTATIN CALCIUM 40 MG TAB PO SCH (07:48)
[2018-08-05] MEDS: ASPIRIN EC 81 MG TAB PO SCH (07:48)
[2018-08-05] MEDS: DORZOLAMIDE/TIMOLOL 10 ML OPHT.BTL EACHEYE SCH ×2 (07:49→20:09)
--- NOTE | 2018-08-05 14:21 | SOAPPROG ---
SOAP Progress Note Assessment/Plan: Assessment: Cerebrovascular accident involving the right thalamus and occipital lobe with sensory abnormalities on the left side of her body and left sided visual impairment in a woman with preexisting right-sided visual impairment, as well as cataracts. * Initial functional independence measure is 79 as of 07/30/2018. Therapies note left visual field loss versus ignoral. Trialing walker versus cane. She often collides with objects on the left using the walker. She has ambulated greater than 150 feet with contact guard assist for steering. She requires structure and cues for activities of daily living. She can mostly dress herself but requires assistance for fine motor tasks including fastening her bra. * Continue PT and OT to optimize mobility and activities of daily living. Specific vision testing per Occupational therapy. * Literature review shows approximately 50% of patients have improvement in vision the relationship of MRI findings to improvement is more fine grain than this provider can ascertain. Memory loss and word-finding deficits * Scored 23/30 on the [facility] mental status exam. Has mild to moderate decrease attention memory and word retrieval. * Continue Speech and Language Pathology. Secondary prevention of cerebrovascular accident with aspirin, blood pressure control, and atorvastatin for dyslipidemia. Hypertension. She reports a history of white coat hypertension. Her blood pressure has been most often well above target of 140/90 during her hospital stay. * Started amlodipine at 2.5 mg daily starting 07/28/2018. Increased to 5 mg QD on 07/29/2018. Elevated times several days as of 08/02/2018. Increased amlodipine to 10 mg beginning 08/02/2018, with extra dose of 5 mg. * Appropriate to use amlodipine rather than 2nd agent e.g. diuretic or DAILY inhibitor or ARB, as she had renal insufficiency in the hospital with GFR in the 40s. Urinary incontinence at night. May be due to visual challenges delaying ambulation to bathroom, however it depresses her functional independence measure by 6 points. Initiate bedside commode, 07/30/2018. Question of bleeding gums. Only anticoagulant/anti-platelet agent is 81 mg of aspirin. She did not receive any other anticoagulants during her hospital stay. She denies history of dental problems. If it continues will check CBC and coagulation profile. Glaucoma. Continue her eyedrops. Anxiety and depression. Continue citalopram and mirtazapine. DVT prophylaxis. She has good mobility and no hemiplegia. Will not initiate pharmacologic anticoagulation, especially in light of history of retinal hemorrhage. DISPOSITION: Unclear whether she will be able to achieve sufficient independence to return to independent living facility, due to low vision; might need increased services. Tentative discharge date set for 08/11/2017. FOLLOW-UP. Primary care provider is Dr. Hoang Elliott. She will have follow up with her hostel parent at the [facility] in [place] is Dr. Amezcua. She will benefit from a neuroophthalmology consultation. 08/05/18 14:19 Subjective: Feels that the home visit went well this morning. She reports that the physical therapist told her that she seemed much more familiar with her home environment. Otherwise without complaints. Slept well, no fevers or chills, no cough or dyspnea. Objective: Vital Signs Temp Pulse Resp BP Pulse Ox 37.0 C 76 15 145/86 H 93 08/05/18 06:23 08/05/18 06:23 08/05/18 06:23 08/05/18 06:23 08/05/18 06:23 08/04/18 08/05/18 08/06/18 05:59 05:59 05:59 Intake Total 1490 1570 560 Output Total 550 200 Balance 940 1370 560 Physical Exam - Physical Exam General Appearance: WD/WN, alert, no apparent distress Respiratory: No respiratory distress, No accessory muscle use Skin: normal color, warm/dry Neuro/Psych: alert, normal mood/affect, oriented x 3, sensory deficit (Low vision), No motor weakness ICD10 Worksheet Patient Problems: Problems Problem Status Onset CVA (cerebral vascular accident) Acute Numbness and tingling of left arm and leg Acute
[2018-08-05] MEDS: ESCITALOPRAM OXALATE 10 MG TAB PO SCH (20:09)
[2018-08-05] MEDS: MIRTAZAPINE 15 MG TAB PO SCH (20:09)
[2018-08-05] MEDS: BIMATOPROST 0.01% 2.5 ML OPHT.BTL EACHEYE SCH (20:09)
[2018-08-06] MEDS: ATORVASTATIN CALCIUM 40 MG TAB PO SCH (08:06)
[2018-08-06] MEDS: ASPIRIN EC 81 MG TAB PO SCH (08:06)
[2018-08-06] MEDS: DORZOLAMIDE/TIMOLOL 10 ML OPHT.BTL EACHEYE SCH ×2 (08:50→20:35)
--- NOTE | 2018-08-06 10:53 | SOAPPROG ---
SOAP Progress Note Assessment/Plan: Assessment: Cerebrovascular accident involving the right thalamus and occipital lobe with sensory abnormalities on the left side of her body and left sided visual impairment in a woman with preexisting right-sided visual impairment, as well as cataracts. * Initial functional independence measure is 79 as of 07/30/2018, improved to 94 as of 08/06/2018. Supervision level for mobility but needs specific navigational cues including asking her if she sees for instance transition from would floor to carpeted floor. Did well in home visit but needs more help in unfamiliar environment. Standby assist and cues for ADLs including transfers, toileting and bathing. Main concern for therapies regarding return home is safety when she gets up at night.. Therapies note left visual field loss versus ignoral. Trialing walker versus cane. She often collides with objects on the left using the walker. She has ambulated greater than 150 feet with contact guard assist for steering. * Literature review shows approximately 50% of patients have improvement in vision the relationship of MRI findings to improvement is more fine grain than this provider can ascertain. Memory loss and word-finding deficits * Scored 23/30 on the [facility] mental status exam. Has mild to moderate decrease attention, memory and word retrieval. * Therapists note lack of follow-through on strategies regarding low vision. She may be hoping for visual recovery rather than participating in adaptations. * She will need assistance for medication management. * Continue Speech and Language Pathology. Secondary prevention of cerebrovascular accident with aspirin, blood pressure control, and atorvastatin for dyslipidemia. Hypertension. She reports a history of white coat hypertension. Her blood pressure has been most often well above target of 140/90 during her hospital stay. * Started amlodipine at 2.5 mg daily starting 07/28/2018. Increased to 5 mg QD on 07/29/2018. Elevated times several days as of 08/02/2018. Increased amlodipine to 10 mg beginning 08/02/2018, with extra dose of 5 mg. * Add low-dose hydrochlorothiazide, 12.5 mg q.day, beginning 08/06/2018. Check BMP 08/10/2018. Had renal insufficiency in the hospital with GFR in the 40s. Urinary incontinence at night. May be due to visual challenges delaying ambulation to bathroom, however it depresses her functional independence measure by 6 points. Initiate bedside commode, 07/30/2018. * No longer present as of 08/06/2018. * Has nocturia times 1-2. Question of bleeding gums. Only anticoagulant/anti-platelet agent is 81 mg of aspirin. She did not receive any other anticoagulants during her hospital stay. She denies history of dental problems. If it continues will check CBC and coagulation profile. Glaucoma. Continue her eyedrops. Anxiety and depression. Continue citalopram and mirtazapine. DVT prophylaxis. She has good mobility and no hemiplegia. Will not initiate pharmacologic anticoagulation, especially in light of history of retinal hemorrhage. DISPOSITION: Attended staffing, 15 min. Discussed with case management, dietitian, nursing, PT, OT, MASONRY INSTALLER. Attended family meeting, 30 min, patient and daughter participating. She did well in her home visit on 08/05/2018, but will need 24 hr assistance at least for the for several days after discharge home. Needs to activate long-term care policy. Will benefit from specific assessment and planning with low supervisor customer records division. Discharge date set for 08/11/2017. FOLLOW-UP. Primary care provider is Dr. Hoang Elliott. She will have follow up with her senior case manager at the [facility] in [place] is Dr. Amezcua. She will benefit from a neuroophthalmology consultation. 08/06/18 11:45 Subjective: No complaints. Sleeping well. Not in pain. Objective: Vital Signs Temp Pulse Resp BP Pulse Ox 36.5 C 95 14 142/88 H 95 08/06/18 08:10 08/06/18 08:10 08/06/18 08:10 08/06/18 08:10 08/06/18 08:10 08/05/18 08/06/18 08/07/18 05:59 05:59 05:59 Intake Total 1570 660 Output Total 200 Balance 1370 660 - Time Spent With Patient Time Spent With Patient: Greater than 35 min floor time today, including more than 50% of time in coordination of care during staffing meeting, and counseling patient and daughter during family meeting. Physical Exam - Physical Exam General Appearance: WD/WN, alert, no apparent distress Respiratory: No respiratory distress, No accessory muscle use Cardiac/Chest: edema (Trace to 1+ right pretibial, no edema left pretibial.) Skin: normal color, warm/dry Neuro/Psych: alert, normal mood/affect, oriented x 3, sensory deficit (Low vision) ICD10 Worksheet Patient Problems: Problems Problem Status Onset CVA (cerebral vascular accident) Acute Numbness and tingling of left arm and leg Acute
[2018-08-06] MEDS: HYDROCHLOROTHIAZIDE 25 MG TAB PO SCH (12:56)
[2018-08-06] MEDS: MIRTAZAPINE 15 MG TAB PO SCH (20:30)
[2018-08-06] MEDS: ESCITALOPRAM OXALATE 10 MG TAB PO SCH (20:30)
[2018-08-06] MEDS: BIMATOPROST 0.01% 2.5 ML OPHT.BTL EACHEYE SCH (20:35)
[2018-08-07] MEDS: DORZOLAMIDE/TIMOLOL 10 ML OPHT.BTL EACHEYE SCH ×2 (07:48→20:06)
[2018-08-07] MEDS: ATORVASTATIN CALCIUM 40 MG TAB PO SCH (08:05)
[2018-08-07] MEDS: ASPIRIN EC 81 MG TAB PO SCH (08:05)
[2018-08-07] MEDS: HYDROCHLOROTHIAZIDE 25 MG TAB PO SCH (08:06)
--- NOTE | 2018-08-07 11:14 | SOAPPROG ---
SOAP Progress Note Assessment/Plan: Assessment/Plan: Cerebrovascular accident involving the right thalamus and occipital lobe with sensory abnormalities on the left side of her body and left sided visual impairment in a woman with preexisting right-sided visual impairment, as well as cataracts. * Initial functional independence measure is 79 as of 07/30/2018, improved to 94 as of 08/06/2018. Supervision level for mobility but needs specific navigational cues including asking her if she sees for instance transition from would floor to carpeted floor. Did well in home visit but needs more help in unfamiliar environment. Standby assist and cues for ADLs including transfers, toileting and bathing. Main concern for therapies regarding return home is safety when she gets up at night.. Therapies note left visual field loss versus ignoral. Trialing walker versus cane. She often collides with objects on the left using the walker. She has ambulated greater than 150 feet with contact guard assist for steering. * Literature review shows approximately 50% of patients have improvement in vision the relationship of MRI findings to improvement is more fine grain than this provider can ascertain. Memory loss and word-finding deficits * Scored 23/30 on the [facility] mental status exam. Has mild to moderate decrease attention, memory and word retrieval. * Therapists note lack of follow-through on strategies regarding low vision. She may be hoping for visual recovery rather than participating in adaptations. * She will need assistance for medication management. * Continue Speech and Language Pathology. Secondary prevention of cerebrovascular accident with aspirin, blood pressure control, and atorvastatin for dyslipidemia. Hypertension. She reports a history of white coat hypertension. Her blood pressure has been most often well above target of 140/90 during her hospital stay. * Started amlodipine at 2.5 mg daily starting 07/28/2018. Increased to 5 mg QD on 07/29/2018. Elevated times several days as of 08/02/2018. Increased amlodipine to 10 mg beginning 08/02/2018, with extra dose of 5 mg. * Add low-dose hydrochlorothiazide, 12.5 mg q.day, beginning 08/06/2018. Check BMP 08/10/2018. Had renal insufficiency in the hospital with GFR in the 40s. Urinary incontinence at night. May be due to visual challenges delaying ambulation to bathroom, however it depresses her functional independence measure by 6 points. Initiate bedside commode, 07/30/2018. * No longer present as of 08/06/2018. * Has nocturia times 1-2. Question of bleeding gums. Only anticoagulant/anti-platelet agent is 81 mg of aspirin. She did not receive any other anticoagulants during her hospital stay. She denies history of dental problems. If it continues will check CBC and coagulation profile. Glaucoma. Continue her eyedrops. Anxiety and depression. Continue citalopram and mirtazapine. DVT prophylaxis. She has good mobility and no hemiplegia. Will not initiate pharmacologic anticoagulation, especially in light of history of retinal hemorrhage. DISPOSITION: Attended staffing, 15 min. Discussed with case management, dietitian, nursing, PT, OT, BOARDING HOUSE MANAGER. Attended family meeting, 30 min, patient and daughter participating. She did well in her home visit on 08/05/2018, but will need 24 hr assistance at least for the for several days after discharge home. Needs to activate long-term care policy. Will benefit from specific assessment and planning with low television producer. Discharge date set for 08/11/2017. FOLLOW-UP. Primary care provider is Dr. Hoang Elliott. She will have follow up with her orthopedic radiologic technologist at the [facility] in [place] is Dr. Amezcua. She will benefit from a neuroophthalmology consultation. Pt is overall doing well - We discussed her BP - will allow a couple of days for the HCTZ to take affect. will be cautions as don't want to decrease too low and affect kidney function. Improved overall bowel/bladder function 08/07/18 11:11 Subjective: reporting no new changes in bowel/bladder or vision. Feeling well without any pain. Good appetite. no fevers/chills. Objective: Vital Signs Temp Pulse Resp BP Pulse Ox 98.5 F 84 15 146/90 H 93 08/07/18 06:46 08/07/18 06:46 08/07/18 06:46 08/07/18 06:46 08/07/18 06:46 08/06/18 08/07/18 08/08/18 05:59 05:59 05:59 Intake Total 660 920 400 Balance 660 920 400 Physical Exam - Physical Exam General Appearance: alert, no apparent distress, other (Wears glasses) EENT: PERRL/EOMI Respiratory: chest non-tender, lungs clear, normal breath sounds Cardiac/Chest: regular rate, rhythm Abdomen: normal bowel sounds, non-tender Skin: normal color Extremities: other (no edema) Neuro/Psych: no motor/sensory deficits, alert, normal mood/affect ICD10 Worksheet Patient Problems: Problems Problem Status Onset Visual impairment Acute CVA (cerebral vascular accident) Acute Numbness and tingling of left arm and leg Acute
[2018-08-07] MEDS: ESCITALOPRAM OXALATE 10 MG TAB PO SCH (20:02)
[2018-08-07] MEDS: MIRTAZAPINE 15 MG TAB PO SCH (20:02)
[2018-08-07] MEDS: BIMATOPROST 0.01% 2.5 ML OPHT.BTL EACHEYE SCH (20:06)
[2018-08-08] MEDS: DORZOLAMIDE/TIMOLOL 10 ML OPHT.BTL EACHEYE SCH ×2 (07:45→20:41)
[2018-08-08] MEDS: ATORVASTATIN CALCIUM 40 MG TAB PO SCH (08:00)
[2018-08-08] MEDS: ASPIRIN EC 81 MG TAB PO SCH (08:01)
[2018-08-08] MEDS: HYDROCHLOROTHIAZIDE 25 MG TAB PO SCH (08:04)
--- NOTE | 2018-08-08 09:35 | SOAPPROG ---
SOAP Progress Note Assessment/Plan: Assessment/Plan: Ms. Horner is an 83 y/o female with a CVA. Has been making good progress during her time on the Acute Rehab Service Cerebrovascular accident involving the right thalamus and occipital lobe with sensory abnormalities on the left side of her body and left sided visual impairment in a woman with preexisting right-sided visual impairment, as well as cataracts. * Initial functional independence measure is 79 as of 07/30/2018, improved to 94 as of 08/06/2018. Supervision level for mobility but needs specific navigational cues including asking her if she sees for instance transition from would floor to carpeted floor. Did well in home visit but needs more help in unfamiliar environment. Standby assist and cues for ADLs including transfers, toileting and bathing. Main concern for therapies regarding return home is safety when she gets up at night.. Therapies note left visual field loss versus ignoral. Trialing walker versus cane. She often collides with objects on the left using the walker. She has ambulated greater than 150 feet with contact guard assist for steering. * Literature review shows approximately 50% of patients have improvement in vision. The relationship of MRI findings to improvement is more fine grain. Memory loss and word-finding deficits * Scored 23/30 on the [facility] mental status exam. Has mild to moderate decrease attention, memory and word retrieval. * Therapists continue to work on low-vision strategies -encouraging patient participation in the concern that there will be no visual improvements. * She will need assistance for medication management. Secondary prevention of cerebrovascular accident with aspirin, blood pressure control, and atorvastatin for dyslipidemia. Hypertension. She reports a history of white coat hypertension. Her blood pressure has been most often well above target of 140/90 during her hospital stay. * Started amlodipine at 2.5 mg daily starting 07/28/2018. Increased to 5 mg QD on 07/29/2018. Elevated times several days as of 08/02/2018. Increased amlodipine to 10 mg beginning 08/02/2018, with extra dose of 5 mg. * Add low-dose hydrochlorothiazide, 12.5 mg q.day, beginning 08/06/2018. Check BMP 08/10/2018. Had renal insufficiency in the hospital with GFR in the 40s. Urinary incontinence at night. Resolved . Consistent with functional likely 2/ 2 vision impairment/etc. * No longer present as of 08/06/2018. Has beside commode/urinals if needed * Has nocturia times 1-2. Question of bleeding gums. Only anticoagulant/anti-platelet agent is 81 mg of aspirin. She did not receive any other anticoagulants during her hospital stay. She denies history of dental problems. If it continues will check CBC and coagulation profile. Glaucoma. Continue her eyedrops. Anxiety and depression. Continue citalopram and mirtazapine. DVT prophylaxis. She has good mobility and no hemiplegia. Will not initiate pharmacologic anticoagulation, especially in light of history of retinal hemorrhage. DISPOSITION: Consideration of 24 hr assistance at least for the for several days after discharge home. Needs to activate long-term care policy. Will benefit from specific assessment and planning with low business division chair. Discharge date set for 08/11/2017. FOLLOW-UP. Primary care provider is Dr. Hoang Elliott. She will have follow up with her bait tier at the [facility] ([place], [place]) in [place] is Dr. Amezcua. She will benefit from a neuroophthalmology consultation. Interim Evaluation BP slightly labile - getting BMP in the morning and pending the results will consider increase in the HCTZ. Pt without complaints of too frequent urination with the current HCTZ- will monitor 08/08/18 09:35 Subjective: No concerns this morning - Continues to do well with appetite and no problems with swallowing. No changes in visual impairment per her perspective. No fevers/ chills, no CP/SOB. Pt feeling well this morning. Objective: Vital Signs Temp Pulse Resp BP Pulse Ox 98.5 F 92 16 148/93 H 93 08/08/18 06:47 08/08/18 06:47 08/08/18 06:47 08/08/18 06:47 08/08/18 06:47 08/07/18 08/08/18 08/09/18 05:59 05:59 05:59 Intake Total 920 1150 370 Balance 920 1150 370 Physical Exam - Physical Exam General Appearance: alert, no apparent distress EENT: other (Wheres glasses - Has small bandaid over bridge of the nose. ) Respiratory: chest non-tender, lungs clear, normal breath sounds Cardiac/Chest: regular rate, rhythm Abdomen: normal bowel sounds, non-tender, soft Skin: normal color Neuro/Psych: alert, normal mood/affect ICD10 Worksheet Patient Problems: Problems Problem Status Onset Visual impairment Acute CVA (cerebral vascular accident) Acute Numbness and tingling of left arm and leg Acute
[2018-08-08] MEDS: BIMATOPROST 0.01% 2.5 ML OPHT.BTL EACHEYE SCH (20:53)
[2018-08-08] MEDS: MIRTAZAPINE 15 MG TAB PO SCH (20:53)
[2018-08-08] MEDS: ESCITALOPRAM OXALATE 10 MG TAB PO SCH (20:53)
--- NOTE | 2018-08-09 06:42 | PDOREHIP ---
Admission [facility] - Admission - 3 Day Assessment Period Admission Date/Day 1: 07/27/18 Day 2: 07/28/18 Day 3: 07/29/18 - Active Diagnoses Comorbidities and Co-existing Conditions at Admission: 18005. None of the Above Discharge [facility] - Discharge - 3 Day Assessment Period 2 Days Prior to Anticipated Discharge Date: 08/09/18 1 Day Prior to Anticipated Discharge Date: 08/10/18 Anticipated Discharge Date: 08/11/18 (Will d/c to Home) - Discharge Skin Conditions Unhealed Pressure Ulcer (1 or more/Stage 1 or >)-Discharge: 0. No # Stage 1 Pressure Ulcers-Discharge: 0 # Stage 2 Pressure Ulcers-Discharge: 0 # of These Stage 2 Pressure Ulcers Present on Admission: 0 # Stage 3 Pressure Ulcers-Discharge: 0 # of These Stage 3 Pressure Ulcers Present on Admission: 0 # Stage 4 Pressure Ulcers-Discharge: 0 # of These Stage 4 Pressure Ulcers Present on Admission: 0 # Unstageable Pressure Ulcers (Non-remove Dress)-Discharge: 0 # These Unstageable Pressure Ulcers (NRD)-Present on Admit: 0 # Unstageable Pressure Ulcers (Slough/Eschar)-Discharge: 0 # These Unstageable Pressure Ulcers(Slough) Present on Admit: 0 # Unstageable Pressure Ulcers (Deep Tissue Injury)-Discharge: 0 # These Unstageable Pressure Ulcers (DTI) Present on Admit: 0
--- NOTE | 2018-08-09 08:42 | SOAPPROG ---
SOAP Progress Note Assessment/Plan: Assessment/Plan: Ms. Horner is an 83 y/o female with a CVA. Has been making good progress during her time on the Acute Rehab Service Cerebrovascular accident involving the right thalamus and occipital lobe with sensory abnormalities on the left side of her body and left sided visual impairment in a woman with preexisting right-sided visual impairment, as well as cataracts. * Initial functional independence measure is 79 as of 07/30/2018, improved to 94 as of 08/06/2018. Supervision level for mobility but needs specific navigational cues including asking her if she sees for instance transition from would floor to carpeted floor. Did well in home visit but needs more help in unfamiliar environment. Standby assist and cues for ADLs including transfers, toileting and bathing. Main concern for therapies regarding return home is safety when she gets up at night.. Therapies note left visual field loss versus ignoral. Trialing walker versus cane. She often collides with objects on the left using the walker. She has ambulated greater than 150 feet with contact guard assist for steering. * Literature review shows approximately 50% of patients have improvement in vision. The relationship of MRI findings to improvement is more fine grain. Memory loss and word-finding deficits * Scored 23/30 on the [facility] mental status exam. Has mild to moderate decrease attention, memory and word retrieval. * Therapists continue to work on low-vision strategies -encouraging patient participation in the concern that there will be no visual improvements. * She will need assistance for medication management. Secondary prevention of cerebrovascular accident with aspirin, blood pressure control, and atorvastatin for dyslipidemia. Hypertension. Somewhat labile between 110's to 140's systolic. Not much above target goal of 140/90. Await BMP before further decision. * Started amlodipine at 2.5 mg daily starting 07/28. Increased to 5 mg 07/29. Elevated times several days as of 08/02/2018. Increased amlodipine to 10 mg * Add low-dose hydrochlorothiazide, 12.5 mg q.day, beginning 08/06/2018. Check BMP 08/09/18. Had renal insufficiency in the hospital with GFR in the 40s. Urinary incontinence at night. Resolved . Consistent with functional incontinence likely 2/2 vision impairment/etc. * No longer present as of 08/06/2018. Has beside commode/urinals if needed * Has nocturia times 1-2. Question of bleeding gums. Only anticoagulant/anti-platelet agent is 81 mg of aspirin. She did not receive any other anticoagulants during her hospital stay. She denies history of dental problems. If it continues will check CBC and coagulation profile. Glaucoma. Continue her eyedrops. Anxiety and depression. Continue citalopram and mirtazapine. DVT prophylaxis. She has good mobility and no hemiplegia. Will not initiate pharmacologic anticoagulation, especially in light of history of retinal hemorrhage. DISPOSITION: Consideration of 24 hr assistance at least for the for several days after discharge home. Needs to activate long-term care policy. Will benefit from specific assessment and planning with low television journalist. Discharge date set for 08/11/2017. FOLLOW-UP. Primary care provider is Dr. Hoang Elliott. She will have follow up with her bobbin presser at the [facility] in [place] is Dr. Amezcua. She will benefit from a neuroophthalmology consultation. 08/09/18 08:39 Subjective: Doing well this morning. No new concerns. NO fevers/chills, no sob/cp. getting anxious to get back home but has appreciated being here for her recovery time. Objective: Vital Signs Temp Pulse Resp BP Pulse Ox 98.2 F 80 16 143/89 H 94 08/09/18 06:21 08/09/18 06:21 08/09/18 06:21 08/09/18 06:21 08/09/18 06:21 08/08/18 08/09/18 08/10/18 05:59 05:59 05:59 Intake Total 1150 1700 Balance 1150 1700 Physical Exam - Physical Exam General Appearance: alert, no apparent distress EENT: normal ENT inspection Respiratory: lungs clear, normal breath sounds Cardiac/Chest: regular rate, rhythm Abdomen: normal bowel sounds, non-tender Skin: normal color Extremities: other (No LE edema) Neuro/Psych: alert, normal mood/affect ICD10 Worksheet Patient Problems: Problems Problem Status Onset CVA (cerebral vascular accident) Acute Numbness and tingling of left arm and leg Acute Visual impairment Acute
[2018-08-09] MEDS: ASPIRIN EC 81 MG TAB PO SCH (08:51)
[2018-08-09] MEDS: HYDROCHLOROTHIAZIDE 25 MG TAB PO SCH (08:51)
[2018-08-09] MEDS: ATORVASTATIN CALCIUM 40 MG TAB PO SCH (08:51)
[2018-08-09] MEDS: DORZOLAMIDE/TIMOLOL 10 ML OPHT.BTL EACHEYE SCH ×2 (08:52→20:39)
[2018-08-09] MEDS: ESCITALOPRAM OXALATE 10 MG TAB PO SCH (20:38)
[2018-08-09] MEDS: MIRTAZAPINE 15 MG TAB PO SCH (20:38)
[2018-08-09] MEDS: BIMATOPROST 0.01% 2.5 ML OPHT.BTL EACHEYE SCH (20:39)
[2018-08-10] MEDS: ASPIRIN EC 81 MG TAB PO SCH (08:13)
[2018-08-10] MEDS: ATORVASTATIN CALCIUM 40 MG TAB PO SCH (08:13)
[2018-08-10] MEDS: HYDROCHLOROTHIAZIDE 25 MG TAB PO SCH (08:13)
[2018-08-10] MEDS: DORZOLAMIDE/TIMOLOL 10 ML OPHT.BTL EACHEYE SCH ×2 (08:40→20:23)
--- NOTE | 2018-08-10 11:23 | SOAPPROG ---
SOAP Progress Note Assessment/Plan: Assessment/Plan: Ms. Horner is an 83 y/o female with a CVA. Has been making good progress during her time on the Acute Rehab Service Cerebrovascular accident involving the right thalamus and occipital lobe with sensory abnormalities on the left side of her body and left sided visual impairment in a woman with preexisting right-sided visual impairment, as well as cataracts. * Initial functional independence measure is 79 as of 07/30/2018, improved to 94 as of 08/06/2018. Supervision level for mobility but needs specific navigational cues including asking her if she sees for instance transition from would floor to carpeted floor. Did well in home visit but needs more help in unfamiliar environment. Standby assist and cues for ADLs including transfers, toileting and bathing. Main concern for therapies regarding return home is safety when she gets up at night.. Therapies note left visual field loss versus ignoral. Trialing walker versus cane. She often collides with objects on the left using the walker. She has ambulated greater than 150 feet with contact guard assist for steering. * Literature review shows approximately 50% of patients have improvement in vision. The relationship of MRI findings to improvement is more fine grain. Memory loss and word-finding deficits * Scored 23/30 on the [facility] mental status exam. Has mild to moderate decrease attention, memory and word retrieval. * Therapists continue to work on low-vision strategies -encouraging patient participation in the concern that there will be no visual improvements. * She will need assistance for medication management. Secondary prevention of cerebrovascular accident with aspirin, blood pressure control, and atorvastatin for dyslipidemia. Hypertension. Somewhat labile between 110's to 140's systolic although over the last 24-48hrs has leveled out well. * Started amlodipine at 2.5 mg daily starting 07/28. Increased to 5 mg 07/29. Elevated times several days as of 08/02/2018. Increased amlodipine to 10 mg * Add low-dose hydrochlorothiazide, 12.5 mg q.day, beginning 08/06/2018. BMP with slight bump in Creatinine. Will need a f/u with PCP to evaluate creatinine in the next 1-2 weeks and make adjustments as needed. Urinary incontinence at night. Resolved . Consistent with functional incontinence likely 2/2 vision impairment/etc. * No longer present as of 08/06/2018. Has beside commode/urinals if needed Question of bleeding gums. Nothing concerning over the last 4 days - * Only anticoagulant/anti-platelet agent is 81 mg of aspirin. She did not receive any other anticoagulants during her hospital stay. * She denies history of dental problems. Glaucoma. Continue her eyedrops. Anxiety and depression. Continue citalopram and mirtazapine. DVT prophylaxis. She has good mobility and no hemiplegia. Will not initiate pharmacologic anticoagulation, especially in light of history of retinal hemorrhage. DISPOSITION: Pt reporting that is going to have home health care in the night to support her when she first goes home. Needs to activate long-term care policy. Will benefit from specific assessment and planning with low seafood technology specialist. Discharge date set for 08/11/2017. FOLLOW-UP. Primary care provider is Dr. Hoang Elliott. She will have follow up with her backbreaker at the [facility] in [place] is Dr. Amezcua. She will benefit from a neuroophthalmology consultation given the new deficits 08/10/18 11:17 Subjective: Feeling very good today - had some questions regarding stroke recovery patterns and time frame that we were able to talk about. No new neurologic changes. encouraged a f/u with PCP in the next 1-2 weeks for another creatinine check since it bumped slightly. She also will f/u with her Ophthamologist at [facility]. Has home care in place to start tomorrow night. Objective: Vital Signs Temp Pulse Resp BP Pulse Ox 98.6 F 78 16 135/83 H 95 08/10/18 05:55 08/10/18 05:55 08/10/18 05:55 08/10/18 05:55 08/10/18 05:55 Laboratory Results 08/09/18 06:45 08/09/18 08/10/18 08/11/18 05:59 05:59 05:59 Intake Total 1700 1200 360 Balance 1700 1200 360 Physical Exam - Physical Exam General Appearance: alert, no apparent distress EENT: other (wearing glasses. Has a small/healed abrasion over the bridge of her nose) Respiratory: lungs clear, normal breath sounds Cardiac/Chest: regular rate, rhythm Abdomen: non-tender, soft Skin: normal color Neuro/Psych: alert, normal mood/affect ICD10 Worksheet Patient Problems: Problems Problem Status Onset CVA (cerebral vascular accident) Acute Numbness and tingling of left arm and leg Acute Visual impairment Acute
[2018-08-10] MEDS: ESCITALOPRAM OXALATE 10 MG TAB PO SCH (20:23)
[2018-08-10] MEDS: MIRTAZAPINE 15 MG TAB PO SCH (20:23)
[2018-08-10] MEDS: BIMATOPROST 0.01% 2.5 ML OPHT.BTL EACHEYE SCH (20:24)
[2018-08-11] MEDS: ATORVASTATIN CALCIUM 40 MG TAB PO SCH (08:47)
[2018-08-11] MEDS: HYDROCHLOROTHIAZIDE 25 MG TAB PO SCH (08:47)
[2018-08-11] MEDS: ASPIRIN EC 81 MG TAB PO SCH (08:47)
[2018-08-11] MEDS: DORZOLAMIDE/TIMOLOL 10 ML OPHT.BTL EACHEYE SCH (08:55)
[2018-08-11 08:56] VITALS: BP 118/70
--- NOTE | 2018-08-11 12:17 | GDS ---
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 OTHER DISCHARGE DIAGNOSES: 1. History of right eye blindness. 2. Hypertension. COMPLICATIONS: There were none. PROCEDURES: There were none. CONSULTATIONS: There were none. HISTORY AND HOSPITAL COURSE: This patient was admitted from [facility]. She had presented there on 07/25/2018, with left- sided weakness, unsteadiness, and difficulty walking. She had a very high blood pressure of 223/107, for which she was placed on a nicardipine drip. Head CT showed a small area of edema in the anterior limb of the right internal capsule. A brain MRI showed an acute infarction of the right occipital lobe and in the right thalamus. MR angiography and a carotid Doppler revealed a thrombosed right posterior cerebral artery but, otherwise, no flow-limiting stenosis. Echocardiogram ruled out embolic source but showed mild concentric LVH, [id number] tricuspid valve regurgitation, mild mitral valve regurgitation, and moderate pulmonic valve regurgitation. Laboratory studies in the hospital showed renal insufficiency with a creatinine ranging from 1.1 to 1.2, and an estimated glomerular filtration rate of 43 to 48. She was otherwise medically stable and ready for inpatient rehabilitation. She did well functionally in rehabilitation. Her initial functional independence measure was 79 on 07/30/2018, which is consistent with senior living level of care but borderline assisted living level of function. Functional independence measure improved to 94 as of 08/06/2018, which is consistent with assisted living level of function. Vision loss was her most significant functional impediment. She had a left homonymous hemianopsia. She achieved supervision level for mobility but often needed specific navigation cues. There was a home visit in which she did well, but needed more help in an unfamiliar environment. Activities of daily living required standby assist and cues. She was able to ambulate more than 150 feet with contact guard assist. Regarding hypertension, she was started on amlodipine 2.5 mg daily on 07/28. This was progressively increased to 10 mg daily as of 08/02/2018. Blood pressure remained elevated. Low-dose hydrochlorothiazide was started at 12.5 mg daily beginning 08/06/2018. Several days after beginning hydrochlorothiazide there was a repeat BMP done on 08/09/2018, which showed a creatinine of 1.3 and an estimated glomerular filtration rate of 39. She was otherwise without any adverse effects of the hydrochlorothiazide. DISCHARGE PLAN: Discharge disposition is home. Condition is good. DIET: Cardiac with regular texture and thin liquids. There were no new allergies noted. She has existing allergies to certain glaucoma medications. ACTIVITY: Ad shama. She is recommended to have 24-hour supervision and will have assistance in her initial days at home from a low-television repair teacher. MEDICATIONS UPON DISCHARGE: 1. Amlodipine 10 mg p.o. daily. 2. Aspirin 81 mg p.o. daily. 3. Atorvastatin 40 mg p.o. daily. 4. Bimatoprost 0.01% one drop each eye at h.s. 5. Dorzolamide/timolol 1 drop each eye b.i.d. 6. Escitalopram 20 mg p.o. q.h.s. 7. Hydrochlorothiazide 12.5 mg p.o. daily. 8. Mirtazapine 15 mg p.o. q.h.s. ISSUES TO BE ADDRESSED AT FOLLOWUP: 1. Mobility and activities of daily living: She will continue PT and OT in the home as well as assistance from a low-television repair teacher. Level of assistance at the [facility] in [place] where she had been on the independent living program will be increased to the assisted living level of assistance. 2. Cognition: She had memory loss and word-finding deficits. She will continue working with Speech and Language Pathology at home. 3. Hypertension: Was much better controlled after titration and addition of medications. Blood pressure on the day of discharge was 118/70. 4. Renal insufficiency: With an increase in her creatinine and a decrease in her glomerular filtration rate, but still with stage 3 chronic kidney disease. She can follow up with primary care and consider consultation with a pilot manager. 5. Low vision: She was recommended to have an evaluation by a neuro- veneer joiner. This will be done at the [facility] where she already has an veneer joiner. Copy requested to: Dr. Amezcua, Chief [facility] /[id number]
== END 2018-08-11 15:47 | disposition home health service (06) | DRG 57 ==
LOC: BREH 15:13
PROVIDERS: ADMIT Internal Medicine Hospice and Palliative Medicine; ATTEND Internal Medicine Hospice and Palliative Medicine
PROC: F08Z7ZZ Vocational Activities and Functional Community or Work Reintegration Skills Treatment (ICD-10-PCS; principal; 2018-07-27)
PROC: F07M3ZZ Motor Function Treatment of Musculoskeletal System - Whole Body (ICD-10-PCS; principal; 2018-07-27)
PROC: F0636ZZ Communicative/Cognitive Integration Skills Treatment of Neurological System - Whole Body (ICD-10-PCS; principal; 2018-07-27)
DX: I69.364 Other paralytic syndrome following cerebral infarction affecting left non-dominant side (principal); I69.398 Other sequelae of cerebral infarction; G31.84 Mild cognitive impairment of uncertain or unknown etiology; I12.9 Hypertensive chronic kidney disease with stage 1 through stage 4 chronic kidney disease, or unspecified chronic kidney disease; N18.3 Chronic kidney disease, stage 3 (moderate); H53.462 Homonymous bilateral field defects, left side; F41.8 Other specified anxiety disorders; H54.61 Unqualified visual loss, right eye, normal vision left eye; H40.9 Unspecified glaucoma; R32 Unspecified urinary incontinence
CPT/HCPCS: 92507-GN; 92523-GN; 97110-GO; 97110-GP; 97112-GO; 97112-GP; 97116-GP; 97162-GP; 97166-GO; 97530-GO; 97530-GP; 97535-GO; 99366-GN; 99366-GO; G0515-GO